=== PATIENT | female | born 1940 | race Two or more races ===

== ENCOUNTER 2020-03-19 09:43 | Inpatient (IN) | payer MEDICARE, OTHER ==
[~2020-03-19] VITALS: Ht 154.9 cm; Wt 77.8 kg
[2020-03-19] MEDS ORDERED: DexAMETHasone SOD PHOS 10MG/1ML VIAL INJ IV ONE (10:15)
[2020-03-19] MEDS ORDERED: cefTRIAXone 1GM/50ML D5W 50 ML IV ONE (10:15)
[2020-03-19 10:29] LABS: Eosinophils # (auto) 0.1 10 ^3/uL (0-0.8); Mean Corpuscular Hemoglobin 20.4 pg (28.0-32.0); Mean Corpuscular Hgb Conc. 27.5 g/dL (32.0-36.0)
[2020-03-19 10:32] LABS: Basophils # (auto) 0 10 ^3/uL (0-0.2); Basophils % (auto) 0.3 % (0.0-2.0); Eosinophils % (auto) 0.6 % (0.0-7.0); Hematocrit 31.4 % (36.0-46.0); Hemoglobin 8.7 g/dL (12.2-16.2); Lymphocytes # (auto) 1.5 10 ^3/uL (0.4-5.4); Lymphocytes % (auto) 12.2 % (10.0-50.0); Monocytes # (auto) 1.5 10 ^3/uL (0-1.3); Monocytes % (auto) 11.9 % (0.0-12.0); Neutrophils # (auto) 9.1 10 ^3/uL (1.6-8.6); Platelet Count (auto) 309 10^3/uL (140-450); Red Blood Cells 4.25 10^6/uL (4.0-5.20); White Blood Cell 12.2 10^3/uL (4.4-10.8)
[2020-03-19 10:41] LABS: INR 1.29 (0.9-1.15); Partial Thromboplastin Time 26.7 sec (23.64-32.05)
[2020-03-19 10:43] LABS: Albumin 3.6 g/dL (3.4-5.0); Anion Gap 5 (5-15); Blood Urea Nitrogen 41 mg/dL (7-18); Calcium 9.6 mg/dL (8.5-10.1); Carbon Dioxide 33 mmol/L (21-32); Chloride 101 mmol/L (98-107); Glucose 100 mg/dL (74-106); Nucleated Red Blood Cells % 7.4 %; Potassium 4.4 mmol/L (3.5-5.1); Red Cell Distribution Width 21.1 % (11.8-14.3); Sodium 139 mmol/L (136-145)
[2020-03-19 10:52] LABS: Alanine Aminotransferase 421 U/L (13-56); Alkaline Phosphatase 167 U/L (45-117); Aspartate Aminotransferase 52 U/L (15-37); BUN/Creatinine Ratio 38.3; Bilirubin, Total 2.3 mg/dL (0.2-1.0); CRP High Sensitivity 2.95 mg/dL (< 0.3); GFR African American 64 mL/min; GFR Non-African American 53 mL/min; Lactate Dehydrogenase 250 U/L (84-246); Total Protein 7.2 g/dL (6.4-8.2)
[2020-03-19 11:15] LABS: Urine Bacteria NONE SEEN /hpf (None Seen); Urine Blood Negative /uL (Negative); Urine Hyaline Cast FEW /lpf (0 - 2); Urine Specific Gravity 1.014 (1.001-1.035); Urine WBC <1 /hpf (0 - 5)
[2020-03-19] MEDS ORDERED: SODIUM CHLORIDE 0.9% 500 ML IV ONE (11:15)
[2020-03-19] MEDS ORDERED: FUROSEMIDE 20 MG/2 ML VIAL IV ONE (12:45)
[2020-03-19] MEDS ORDERED: MORPHINE SULF INJ 2 MG/ML SYRINGE 1ML IV PRN ×2 (14:45→16:15)
[2020-03-19] MEDS ORDERED: NITROGLYCERIN 0.4 MG SL TAB SL PRN (14:45)
[2020-03-19] MEDS ORDERED: PANTOPRAZOLE 40 MG TAB PO ONE (16:15)
[2020-03-19] MEDS ORDERED: ALBUTEROL SULF 2.5 MG/0.5ML(0.5%) NEB SOLN NEB PRN (16:15)
[2020-03-19] MEDS ORDERED: ONDANSETRON HCL 4 MG/2 ML VIAL IV PRN (16:15)
[2020-03-19] MEDS ORDERED: ACETAMINOPHEN 500 MG TAB PO PRN (16:15)
[2020-03-19] MEDS: FUROSEMIDE 40 MG/4 ML VIAL IV SCH (18:30)
[2020-03-19] MEDS ORDERED: ASPI-691 PO (18:59)
[2020-03-19 19:29] LABS: Hematocrit 29.8 % (36.0-46.0)
[2020-03-19 19:31] LABS: Hemoglobin 8.3 g/dL (12.2-16.2)
[2020-03-19 19:35] LABS: Amylase 16 U/L (25-115); Lipase 82 U/L (73-393)
[2020-03-19] MEDS: ALBUTEROL SULF 2.5 MG/0.5ML(0.5%) NEB SOLN NEB SCH (19:51)
[2020-03-19] MEDS: IPRATROPIUM BROM 0.5 MG/2.5ML INH SOL NEB SCH (19:52)
--- NOTE | 2020-03-19 23:16 | NUR ---
Telemetry admit from CHANDRA MONTALVO admitted to Telemetry unit; no SBAR received. Patient oriented by SANAZ MIRANDA, primary RN, to unit, room, bed, and unit policies regarding patient care and visiting hours. Patient now on continuous telemetry monitoring, tele box #27 and telemetry reading on arrival to unit is 91. Patient placed on bedside oxygen at 4lpm with O2 sat of 91, weighed by bedscale and encouraged to call if she needs something. Bed low with HOB in semi-Ortega's position. Post breath sounds diminished throughout. Ant breath sounds clear with occ scattered crackles. All questions and concerns addressed, patient verbalized understanding. Nurse call light attached to HOB rail for easy access by pt.
[2020-03-20 01:08] LABS: Hematocrit 30.4 % (36.0-46.0); Hemoglobin 8.4 g/dL (12.2-16.2)
[2020-03-20] MEDS: ALBUTEROL SULF 2.5 MG/0.5ML(0.5%) NEB SOLN NEB SCH ×4 (01:14→19:29)
[2020-03-20] MEDS: IPRATROPIUM BROM 0.5 MG/2.5ML INH SOL NEB SCH ×4 (01:14→19:29)
[2020-03-20] MEDS: ATORVASTATIN 20 MG TAB PO SCH ×2 (01:31→22:37)
[2020-03-20] MEDS: CARVEDILOL 3.125 MG TAB PO SCH ×3 (01:31→22:38)
[2020-03-20] MEDS: PANTOPRAZOLE 40 MG TAB PO SCH ×3 (01:31→22:37)
[2020-03-20 05:00] VITALS: BP 82/32
[2020-03-20] MEDS: FUROSEMIDE 40 MG/4 ML VIAL IV SCH ×2 (06:00→17:46)
[2020-03-20] MEDS: CLINDAMYCIN 600MG IV 50 ML IV SCH ×4 (06:00→22:00)
[2020-03-20] MEDS: SODIUM CHLOR 0.9% PF (SALINE LOCK) 10ML VIAL/SYR IV SCH ×4 (06:00→22:00)
--- NOTE | 2020-03-20 07:30 | NUR ---
RECEIVED REPORT AND CONTINUATION OF CARE,PATIENT ASLEEP,AROUSABLE TO VERBAL STIMULI, ALERT,ORIENTED,COOPERATIVE,INSTRUCTED ON PLAN OF CARE AND EXPLAIN DISEASE PROCESS,CALL LIGHT WITHIN REACH,PATIENT REMINDED INSTRUCTED TO CALL FOR ASSISTANCE.PATIENT VERBALIZED UNDERSTANDING
[2020-03-20 07:46] LABS: Hemoglobin 7.9 g/dL (12.2-16.2); White Blood Cell 11.4 10^3/uL (4.4-10.8)
[2020-03-20 07:48] LABS: Hematocrit 28.2 % (36.0-46.0); Mean Corpuscular Hemoglobin 20.6 pg (28.0-32.0); Mean Corpuscular Volume 73.6 fL (80.0-100.0); Platelet Count (auto) 236 10^3/uL (140-450); Red Blood Cells 3.83 10^6/uL (4.0-5.20)
[2020-03-20 07:54] LABS: Albumin 2.7 g/dL (3.4-5.0); BUN/Creatinine Ratio 36.9; Calcium 8.6 mg/dL (8.5-10.1); Potassium 4.1 mmol/L (3.5-5.1); Red Cell Distribution Width 20.9 % (11.8-14.3)
[2020-03-20 07:55] LABS: Band Neutrophils % (manual) 0; Basophils % (manual) 0 (0.0-2.0); Blast Cells 0; Eosinophils % (manual) 0 (0-7); Metamyelocytes % 0; Myelocytes % 0; Promyelocytes % 0
[2020-03-20 07:56] LABS: Bilirubin, Total 1.2 mg/dL (0.2-1.0); Total Protein 5.8 g/dL (6.4-8.2)
[2020-03-20 08:00] VITALS: BP 82/30
[2020-03-20] MEDS ORDERED: ENALAPRIL MALEATE 2.5 MG TAB PO SCH (10:00)
[2020-03-20] MEDS ORDERED: ASPirin 81 mg TAB PO SCH (10:00)
[2020-03-20] MEDS ORDERED: NITROGLYCERIN 0.2MG/HR TOPICAL PATCH TD SCH (10:00)
[2020-03-20 10:12] LABS: Lymphocytes % (manual) 10 (10.0-50.0); Monocytes % (manual) 10 (0-12); Reactive Lymphocytes 1
--- NOTE | 2020-03-20 10:30 | NUR ---
DAUGHTER DAVID CALLED (AFTER PASSWORD PROVIDED) UPDATED WITH PATIENT STATUS AND PLAN OF CARE
[2020-03-20] MEDS: levoFLOXacin 500MG 100 ML IV SCH (10:42)
[2020-03-20] MEDS: POTASSIUM CHL 20 Meq TABLET PO SCH (10:46)
[2020-03-20] MEDS: ASPirin 81 mg TAB PO SCH (10:47)
[2020-03-20] MEDS: ENOXAPARIN SOD 40 MG/0.4 ML SYRINGE SC SCH (10:49)
[2020-03-20] MEDS: NITROGLYCERIN 0.2MG/HR TOPICAL PATCH TD SCH (10:49)
--- NOTE | 2020-03-20 10:50 | NUR ---
COREG 3.125,NTG 0.2MG AND VASOTEC HELD DUE TO BP 93/50
--- NOTE | 2020-03-20 11:05 | NUR ---
MD VISIT DR. Lucy JIANG HERE TO SEE AND EXAMINED PATIENT MADE AWARE OF HGB.OF 7.9,RECEIVED ORDER FOR CMP,CBC AND STOOL FOR OB
--- NOTE | 2020-03-20 11:51 | NUR ---
Nutrition Assessment Notes Please refer to link for full assessment notes. Est Energy needs: 0944-4579 kcals (23-25 kcal/kgBW) Est Protein needs: 46-57 gms/day (1.0-1.1 gm/kgBW) Will continue to monitor and reassess prn. Addendum: 03/20/20 at [address] Amended: Links added.
[2020-03-20 12:00] VITALS: BP 113/43
[2020-03-20 14:43] VITALS: BP 113/43
[2020-03-20 17:00] VITALS: BP 95/48
[2020-03-20] MEDS: traMADol HCL 50 MG TAB PO PRN (17:51)
--- NOTE | 2020-03-20 17:51 | NUR ---
C/o back pain scale of 6/10,medicated with Ultram 50 mg po,see eMAR
--- NOTE | 2020-03-20 19:17 | NUR ---
STATUS UNCHANGED, NO DISTRESS,NO DISCOMFORT.REPORT GIVEN TO SANAZ FERRARO RN
--- NOTE | 2020-03-20 19:30 | NUR ---
Opening Shift Note Assumed care of patient, awake and alert and complaintive. Asking for room temp to be turned down; has 4 blankets on her bed. This RN spoke with pt's room mate who is not hot, therefore room temp not changed. 3 blankets removed and one folded at foot of bed. Extra blankets placed in pt's closet. Pt agreeable with action taken. Pt not wearing gown; covered with sheet. OBT cleared of everything but cup, pitcher of water and one pudding from p.m. tray and spoon. No S/S of distress/SOB and pt denies pain. Instructed on POC and to call for assist PRN. This RN will continue to monitor for changes Q1hr and PRN. Bed low; HOB in High Ortega's position. Call light at pt's side.
[2020-03-20 21:57] VITALS: BP 106/55
--- NOTE | 2020-03-20 22:37 | NUR ---
Pt in deep sleep when awakened for med pass. Pt took meds in cup and began to pour them into her own mouth then yelled and jumped having one tablet in mouth. Pt unable to state what happened but denies pain. When RN started asking questions to determine orientation, pt cut her eyes at this nurse and smiled verbally avoiding answering the questions. Pt stated this happens freq when awakens in night.
[2020-03-21] MEDS: TEMAZEPAM 15 MG CAP PO PRN (00:19)
--- NOTE | 2020-03-21 00:19 | NUR ---
Restoril i po given to pt as she awakened yelling, "I need a nurse! I need a nurse!" This RN responded to pt's room finding her in bed with anxious expression. Pt stated she needed air. Pt wearing n/c for O2 at 4 lpm. This RN explained this to pt who then stated, "Everyone's been telling me that, but what does it mean?" Explained that oxygen is the main thing in the air that we need to breathe and her nasal tube is giving this to her. Pt having difficulty putting her words together and her hands were shaking. This RN asked if she had med to help her relax would she take it. Pt responded positively and said she needs sleep. Restoril given as no anti-anxiety med ordered. Pt asked that her HOB be lowered. HOB lowered per desire to semi-Ortega's position as pt requesting.
--- NOTE | 2020-03-21 01:29 | NUR ---
Respiratory note: PT IS REFUSING SCHED MED NEB TX AT THIS TIME. PT SHOWS NO S/S OF SOB OR RESPIRATORY DISTRESS. WILL CONTINUE TO MONITOR.
[2020-03-21 04:58] VITALS: BP 104/43
[2020-03-21] MEDS: CLINDAMYCIN 600MG IV 50 ML IV SCH (06:00)
[2020-03-21] MEDS: SODIUM CHLOR 0.9% PF (SALINE LOCK) 10ML VIAL/SYR IV SCH ×3 (06:00→22:33)
[2020-03-21] MEDS: FUROSEMIDE 40 MG/4 ML VIAL IV SCH (06:00)
[2020-03-21] MEDS: ALBUTEROL SULF 2.5 MG/0.5ML(0.5%) NEB SOLN NEB SCH ×3 (07:32→19:14)
[2020-03-21] MEDS: IPRATROPIUM BROM 0.5 MG/2.5ML INH SOL NEB SCH ×3 (07:32→19:14)
[2020-03-21 07:36] LABS: Hemoglobin 8.5 g/dL (12.2-16.2)
[2020-03-21 07:39] LABS: Hematocrit 30.3 % (36.0-46.0); Mean Corpuscular Hemoglobin 20.9 pg (28.0-32.0); Mean Corpuscular Hgb Conc. 28.2 g/dL (32.0-36.0); Mean Corpuscular Volume 74.3 fL (80.0-100.0); Platelet Count (auto) 265 10^3/uL (140-450); Red Blood Cells 4.08 10^6/uL (4.0-5.20); White Blood Cell 13.4 10^3/uL (4.4-10.8)
[2020-03-21 07:56] LABS: BUN/Creatinine Ratio 34.2; Potassium 4.8 mmol/L (3.5-5.1)
[2020-03-21 07:59] LABS: Bilirubin, Total 1.2 mg/dL (0.2-1.0); Total Protein 6.3 g/dL (6.4-8.2)
[2020-03-21 08:00] VITALS: BP_SYST 104; BP_DIAS 43; BP_DIAS 73
[2020-03-21 09:05] LABS: Band Neutrophils % (manual) 0; Basophils % (manual) 0 (0.0-2.0); Blast Cells 0; Metamyelocytes % 0; Myelocytes % 0; Promyelocytes % 0; Reactive Lymphocytes 0
[2020-03-21 09:06] LABS: Eosinophils % (manual) 2 (0-7); Lymphocytes % (manual) 14 (10.0-50.0); Monocytes % (manual) 15 (0-12)
[2020-03-21 09:07] LABS: Hepatitis B Surface Antibody Negative
[2020-03-21 09:46] LABS: Hepatitis A Total Antibody Negative
[2020-03-21] MEDS: CARVEDILOL 3.125 MG TAB PO SCH ×2 (10:00→22:34)
[2020-03-21] MEDS: NITROGLYCERIN 0.2MG/HR TOPICAL PATCH TD SCH (10:00)
[2020-03-21] MEDS: levoFLOXacin 500MG 100 ML IV SCH (10:03)
[2020-03-21] MEDS: POTASSIUM CHL 20 Meq TABLET PO SCH (10:03)
--- NOTE | 2020-03-21 10:10 | NUR ---
Hold PT at this time. Mobilization is contraindicated at this time due to pt's BP 90/44. Will recheck and attempt again later. RN aware.
[2020-03-21 10:11] LABS: Hepatitis B Surface Antigen Negative (Negative)
[2020-03-21] MEDS: ASPirin 81 mg TAB PO SCH (10:11)
[2020-03-21] MEDS: ENOXAPARIN SOD 40 MG/0.4 ML SYRINGE SC SCH (10:11)
[2020-03-21] MEDS: PANTOPRAZOLE 40 MG TAB PO SCH ×2 (10:11→22:35)
[2020-03-21 10:47] LABS: Hepatitis C Antibody Negative (Negative)
[2020-03-21 10:56] LABS: Hepatitis B Core Total AB Negative
[2020-03-21 12:00] VITALS: BP 95/45
--- NOTE | 2020-03-21 15:00 | NUR ---
2nd attempt made for PT eval, pt is currently having echo done. Will attempt again later.
[2020-03-21 17:00] VITALS: BP 111/43
--- NOTE | 2020-03-21 19:15 | NUR ---
Received report from Day Shift YAKELIN Bourgeois. Initial assessment done. Pt. resting in bed, calm and sleeping.
[2020-03-21 20:00] VITALS: BP 108/42
--- NOTE | 2020-03-21 20:00 | NUR ---
Complete assessment done. Pt. on high back and head of bed up @ 85-90 degrees angle. Pt. with mild sob with 02 sat. of 93 % @ 3L/NC continuous. Pt. turned/repositioned, provided bedside nsg. care. Pt. denies any pain, denies chest pain, SR @ the Tele # 27 @ the 80's to 90's @ the monitor. Pt. with F/C which was started last 03/19/20 for Immobility. Generally skin intact. Pt. with RAC PIV access -Saline lock use for antibiotics only, keep patent and intact. No s/s of IV infiltration. Pt.'s consults DR. Chavarria and Dr. Villalta.
[2020-03-21 22:00] VITALS: BP 108/42
[2020-03-21] MEDS: ATORVASTATIN 20 MG TAB PO SCH (22:34)
--- NOTE | 2020-03-21 22:34 | NUR ---
Due meds. given to the pt. Pt. given explanation to the use/benefits of meds. as scheduled. Pt. able to swallow meds. without difficulty with HOB Up @ 45-55 degrees angle. Pt. keep clean, dry, safe and sanding line operator bed, with call-light within reach, bed locked in low position and siderails up x 3 for pt. safety. Pt. on 3 L/NC continuous. No s/s of RR distress.
--- NOTE | 2020-03-22 00:30 | NUR ---
Pt. with RT care @ the bedside. Keep pt. safe and advertising clerk bed. HOB UP @ always.
--- NOTE | 2020-03-22 02:00 | NUR ---
Pt. calm and sleeping, turned/repositioned with the help of nsg. staff (LEANDRA).Pt. continuous on 3 L/NC. Encouraged the pt. not to pull out the Nasal cannula from her nose and keep it there. Checked pt. 02 @ 3L/NC intact to her nasal area. Keep pt. safe and insole coverer bed.
[2020-03-22 05:00] VITALS: BP 106/51
--- NOTE | 2020-03-22 05:30 | NUR ---
Pt. desatting, called RT by the covering RN Sheila, RT started pt. on Oximizer @ 3-5 L per RT Protocol. keep pt. HOB UP and encouraged pt. not to pull out 02 from her nose.
--- NOTE | 2020-03-22 06:00 | NUR ---
Pt. receiving RT treatment/RT care as scheduled. Keep pt. comfortable with the HOB UP @ all times. 02 continuous
[2020-03-22] MEDS: SODIUM CHLOR 0.9% PF (SALINE LOCK) 10ML VIAL/SYR IV SCH ×3 (06:17→22:14)
[2020-03-22] MEDS: ALBUTEROL SULF 2.5 MG/0.5ML(0.5%) NEB SOLN NEB SCH ×7 (06:28→22:00)
[2020-03-22] MEDS: IPRATROPIUM BROM 0.5 MG/2.5ML INH SOL NEB SCH ×5 (06:28→22:00)
--- NOTE | 2020-03-22 06:28 | NUR ---
Respiratory note PAGED FOR 220A FOR PT DESATING. FOUND PT ON ROOM AIR, SP02 76%. RR 24 AND PURSE LIP BREATHING. PLACED PT BACK ON 02 NC 5 LPM SP02 AFTER CHANGE 95%. GAVE PT SCHEDULED BREATHING TX.
[2020-03-22 08:00] VITALS: BP 106/53
--- NOTE | 2020-03-22 08:00 | NUR ---
Received pt resting in bed, pt on O2 5 lit N/C, pt O2 sat 93%. pt denies any pain or discomfort at this time, zheng draining to gravity, SCDs on to BLE, call light within reach, will continue to monitor pt.
[2020-03-22] MEDS: NITROGLYCERIN 0.2MG/HR TOPICAL PATCH TD SCH (10:00)
[2020-03-22] MEDS ORDERED: FUROSEMIDE 40 MG/4 ML VIAL IV SCH (10:00)
[2020-03-22] MEDS: ASPirin 81 mg TAB PO SCH (10:21)
[2020-03-22] MEDS: levoFLOXacin 500MG 100 ML IV SCH (10:21)
[2020-03-22] MEDS: CARVEDILOL 3.125 MG TAB PO SCH ×2 (10:22→22:14)
[2020-03-22] MEDS: ENOXAPARIN SOD 40 MG/0.4 ML SYRINGE SC SCH (10:22)
[2020-03-22] MEDS: PANTOPRAZOLE 40 MG TAB PO SCH ×2 (10:22→22:14)
[2020-03-22] MEDS: POTASSIUM CHL 20 Meq TABLET PO SCH (10:22)
--- NOTE | 2020-03-22 11:09 | NUR ---
Dr. Linares at unit to see pt, doctor informed regarding holding the Nitro patch due to low BP, doctor also informed that Coreg has been held in the past due to low BP, doctor stated to give Coreg and to only hold it if SBP <90 or HR <60, doctor informed that pt is now on 5 lit of O2 via N/C,
[2020-03-22 11:19] LABS: Albumin 2.9 g/dL (3.4-5.0); Potassium 5.2 mmol/L (3.5-5.1)
[2020-03-22 11:22] LABS: BUN/Creatinine Ratio 37.9
[2020-03-22 11:42] LABS: Basophils # (auto) 0 10 ^3/uL (0-0.2); Basophils % (auto) 0.1 % (0.0-2.0); Eosinophils # (auto) 0.1 10 ^3/uL (0-0.8); Eosinophils % (auto) 0.8 % (0.0-7.0); Hematocrit 32.3 % (36.0-46.0); Hemoglobin 8.8 g/dL (12.2-16.2); Lymphocytes # (auto) 0.8 10 ^3/uL (0.4-5.4); Lymphocytes % (auto) 6.9 % (10.0-50.0); Mean Corpuscular Hemoglobin 20.1 pg (28.0-32.0); Mean Corpuscular Hgb Conc. 27.4 g/dL (32.0-36.0); Mean Corpuscular Volume 73.6 fL (80.0-100.0); Monocytes # (auto) 1.2 10 ^3/uL (0-1.3); Monocytes % (auto) 10.1 % (0.0-12.0); Neutrophils # (auto) 9.5 10 ^3/uL (1.6-8.6); Neutrophils % (auto) 82.1 % (37.0-80.0); Nucleated Red Blood Cells % 2.5 %; Platelet Count (auto) 202 10^3/uL (140-450); Red Blood Cells 4.39 10^6/uL (4.0-5.20); White Blood Cell 11.5 10^3/uL (4.4-10.8)
[2020-03-22 11:49] LABS: Red Cell Distribution Width 21.4 % (11.8-14.3)
[2020-03-22 12:00] VITALS: BP 115/41
--- NOTE | 2020-03-22 12:00 | NUR ---
Respiratory note: PT REFUSING MED NEB TX. PT EDUCATED ON MEDICATION. PT STILL REFUSING.
--- NOTE | 2020-03-22 13:27 | NUR ---
Dr. Chavarria / GI at bed side to see pt, doctor ordered Dulcolax suppository x1 and Fleet enema x1.
[2020-03-22] MEDS ORDERED: BISACODYL 10 MG RECT SUPP PR ONE (13:30)
[2020-03-22] MEDS ORDERED: FLEET ENEMA(ADULT) 135 ML PR ONE (13:30)
--- NOTE | 2020-03-22 14:20 | NUR ---
Respiratory note: PT MED NEBS CHANGED TO Q4. PT JUST GETTING BACK FROM RADIOLOGY. PT STILL REFUSING.
--- NOTE | 2020-03-22 14:27 | NUR ---
Called Dr. Chavarria / GI to inform her that Dr. Linares place another GI consult for pt to be evaluated for transaminitis. Left a message with doctor's nurse.
[2020-03-22] MEDS: methylPREDNISolone ACETATE 80 MG/ML VL IM SCH ×2 (14:35→22:14)
--- NOTE | 2020-03-22 14:58 | NUR ---
Pt requested the Dulcolax suppository and wants to wait for the fleet enema for now.
--- NOTE | 2020-03-22 15:44 | NUR ---
Dr. Linares called and left a message with the pt's VQ scan results.
--- NOTE | 2020-03-22 16:35 | NUR ---
Called nuclear medicine to inquired why was the ventilation study from the VQ scan was not done as per Dr. Linares's request, no answer, left a message to call me back. Doctor informed that they were gone for the day and that they are closed for the weekend.
[2020-03-22 17:00] VITALS: BP 112/57
--- NOTE | 2020-03-22 18:40 | NUR ---
RT NOTE PT WAS SEEN BY RT FOR HHN TX. PT TOLERATES POORLY. TX STOPPED EARLY DUE TO PT REQUEST. PT WAS TRIED ON OXYMIZER, BUT STATES ITS TOO UNCOMFORTABLE SO PT WAS PLACED BACK ON 6L NASAL CANNULA. YAKELIN MCCLELLAN. CONT ORDERED Addendum: 03/22/20 at 1929 by Mari Pimentel RT Amended: Links added.
--- NOTE | 2020-03-22 19:20 | NUR ---
Opening Shift Note Received report from Kamilla HAMLIN. Assumed care of patient, awake and alert. No S/S of distress/SOB or pain. Instructed on POC and to call for assist PRN. Fall precaution measures in place, will continue to monitor for changes Q1hr and PRN.
[2020-03-22 20:00] VITALS: BP 116/58
[2020-03-22 22:00] VITALS: BP 116/58
[2020-03-22] MEDS: DOCUSATE SOD 100 MG CAP PO SCH ×2 (22:00→22:14)
--- NOTE | 2020-03-22 22:08 | NUR ---
RT NOTE PT WAS SEEN BY RT FOR HHN TX. PT STATES SHE IS BREATHING FINE AND DOES NOT WANT A TX. YAKELIN COELLO AT BEDSIDE AND AWARE OF PT REFUSAL. HR 87, RR 21, BS CLEAR/DIM, POX 99% ON 6L NASAL CANNULA. FIO2 DECREASED TO 5L. YAKELIN COELLO NOTIFIED. NO TREATMENT GIVEN AT THIS TIME. CONT ORDERED Addendum: 03/22/20 at 2301 by Mari Pimentel RT Amended: Links added.
[2020-03-23] MEDS: IPRATROPIUM BROM 0.5 MG/2.5ML INH SOL NEB SCH ×6 (02:00→23:10)
[2020-03-23] MEDS: ALBUTEROL SULF 2.5 MG/0.5ML(0.5%) NEB SOLN NEB SCH ×6 (02:00→23:10)
--- NOTE | 2020-03-23 02:28 | NUR ---
RT NOTE PT WAS SEE NBY RT FOR HHN TX. PT REFUSED TX EARLIER. NO SOB OR DISTRESS NOTED. HR 90, RR 18, BS NOT AUSCULTATED, POX 97% ON 5L NASAL CANNULA. CONT ORDERED Addendum: 03/23/20 at 0229 by Mari Pimentel RT Amended: Links added.
[2020-03-23 05:00] VITALS: BP 119/56
[2020-03-23] MEDS: SODIUM CHLOR 0.9% PF (SALINE LOCK) 10ML VIAL/SYR IV SCH ×3 (06:15→22:40)
[2020-03-23] MEDS: methylPREDNISolone ACETATE 80 MG/ML VL IM SCH ×3 (06:17→22:56)
--- NOTE | 2020-03-23 07:30 | NUR ---
Opening Shift Note Assumed care of patient, awake and alert. No S/S of distress/SOB or pain. Instructed on POC and to call for assist PRN, will continue to monitor for changes Q1hr and PRN.
[2020-03-23 08:19] VITALS: BP 115/65
[2020-03-23 08:44] LABS: Basophils # (auto) 0 10 ^3/uL (0-0.2); Basophils % (auto) 0.2 % (0.0-2.0); Eosinophils # (auto) 0.1 10 ^3/uL (0-0.8); Hematocrit 27.5 % (36.0-46.0); Lymphocytes # (auto) 0.7 10 ^3/uL (0.4-5.4); Monocytes # (auto) 1.1 10 ^3/uL (0-1.3)
[2020-03-23 08:47] LABS: Eosinophils % (auto) 0.7 % (0.0-7.0); Hemoglobin 7.8 g/dL (12.2-16.2); Lymphocytes % (auto) 6.7 % (10.0-50.0); Mean Corpuscular Hemoglobin 20.7 pg (28.0-32.0); Mean Corpuscular Hgb Conc. 28.4 g/dL (32.0-36.0); Mean Corpuscular Volume 72.8 fL (80.0-100.0); Monocytes % (auto) 10.5 % (0.0-12.0); Neutrophils # (auto) 8.4 10 ^3/uL (1.6-8.6); Neutrophils % (auto) 81.9 % (37.0-80.0); Nucleated Red Blood Cells % 1.5 %; Platelet Count (auto) 220 10^3/uL (140-450); Red Blood Cells 3.78 10^6/uL (4.0-5.20); White Blood Cell 10.2 10^3/uL (4.4-10.8)
[2020-03-23 08:49] LABS: Red Cell Distribution Width 20.9 % (11.8-14.3)
[2020-03-23 09:00] LABS: Albumin 2.8 g/dL (3.4-5.0); Magnesium 2.2 mg/dL (1.6-2.6); Potassium 5.1 mmol/L (3.5-5.1)
[2020-03-23 09:03] LABS: BUN/Creatinine Ratio 41.7; Total Protein 5.9 g/dL (6.4-8.2)
[2020-03-23] MEDS: levoFLOXacin 500MG 100 ML IV SCH (09:42)
[2020-03-23] MEDS: ENOXAPARIN SOD 40 MG/0.4 ML SYRINGE SC SCH (09:42)
[2020-03-23] MEDS: CARVEDILOL 3.125 MG TAB PO SCH ×2 (09:43→22:41)
[2020-03-23] MEDS: PANTOPRAZOLE 40 MG TAB PO SCH ×2 (09:43→22:42)
[2020-03-23] MEDS: ASPirin 81 mg TAB PO SCH (09:43)
[2020-03-23] MEDS: DOCUSATE SOD 100 MG CAP PO SCH ×2 (09:43→22:40)
--- NOTE | 2020-03-23 09:55 | NUR ---
Dr. Linares in to see patient as primary MD. He was informed that the patient's daughter, Aury, wants to speak with him: [phone].
[2020-03-23] MEDS: NITROGLYCERIN 0.2MG/HR TOPICAL PATCH TD SCH (10:00)
--- NOTE | 2020-03-23 11:15 | NUR ---
IV insertion IV access obtained, via clean sterile technique by inserting 20 gauge catheter at right hand after 1 attempt. IV secured properly. No trauma to site. Patient tolerated procedure well. IV right AC removed with tip intact. Pressure dressing to site.
[2020-03-23 13:00] VITALS: BP 116/55
[2020-03-23 16:55] VITALS: BP 135/56
--- NOTE | 2020-03-23 18:53 | NUR ---
Respiratory note: PLACED PT ON 10L OXYMIZER POST MED NEB TO ACHIEVE SAT OF 92%.
[2020-03-23 22:00] VITALS: BP 107/51
[2020-03-23] MEDS: TEMAZEPAM 15 MG CAP PO PRN (22:43)
--- NOTE | 2020-03-23 23:15 | NUR ---
Respiratory note: PT DID NOT FINISH MED NEB, SAID SHE CANT DO IT
--- NOTE | 2020-03-23 23:16 | NUR ---
Respiratory note: PT DOES NOT WANT TO BE WOKEN UP FOR NEXT SCHEDULED MED NEB AT 0200
[2020-03-24 06:00] VITALS: BP 128/66
[2020-03-24] MEDS: ALBUTEROL SULF 2.5 MG/0.5ML(0.5%) NEB SOLN NEB SCH ×6 (06:24→22:10)
[2020-03-24] MEDS: IPRATROPIUM BROM 0.5 MG/2.5ML INH SOL NEB SCH ×6 (06:25→22:10)
[2020-03-24] MEDS: SODIUM CHLOR 0.9% PF (SALINE LOCK) 10ML VIAL/SYR IV SCH ×3 (06:31→21:05)
[2020-03-24] MEDS: methylPREDNISolone ACETATE 80 MG/ML VL IM SCH (06:31)
[2020-03-24 07:25] LABS: Basophils # (auto) 0 10 ^3/uL (0-0.2); Eosinophils # (auto) 0 10 ^3/uL (0-0.8); Eosinophils % (auto) 0.3 % (0.0-7.0)
[2020-03-24 07:29] LABS: Basophils % (auto) 0.2 % (0.0-2.0); Hematocrit 27.8 % (36.0-46.0); Hemoglobin 7.9 g/dL (12.2-16.2); Lymphocytes # (auto) 0.9 10 ^3/uL (0.4-5.4); Lymphocytes % (auto) 7.5 % (10.0-50.0); Mean Corpuscular Hemoglobin 20.5 pg (28.0-32.0); Mean Corpuscular Hgb Conc. 28.4 g/dL (32.0-36.0); Mean Corpuscular Volume 72.3 fL (80.0-100.0); Monocytes % (auto) 8.7 % (0.0-12.0); Neutrophils % (auto) 83.3 % (37.0-80.0); Nucleated Red Blood Cells % 0.6 %; Platelet Count (auto) 234 10^3/uL (140-450); Red Blood Cells 3.85 10^6/uL (4.0-5.20)
[2020-03-24 07:41] LABS: Red Cell Distribution Width 21.4 % (11.8-14.3)
[2020-03-24 07:53] LABS: Albumin 2.9 g/dL (3.4-5.0); Calcium 9.4 mg/dL (8.5-10.1); Magnesium 2.2 mg/dL (1.6-2.6); Potassium 5.2 mmol/L (3.5-5.1)
[2020-03-24 07:58] LABS: BUN/Creatinine Ratio 39.3; Bilirubin, Total 0.8 mg/dL (0.2-1.0); Total Protein 6.1 g/dL (6.4-8.2)
[2020-03-24 09:00] VITALS: BP 102/72
[2020-03-24] MEDS: ENOXAPARIN SOD 40 MG/0.4 ML SYRINGE SC SCH (09:54)
[2020-03-24] MEDS: FUROSEMIDE 20 MG TAB PO SCH (09:54)
[2020-03-24] MEDS: ASPirin 81 mg TAB PO SCH (09:54)
[2020-03-24] MEDS: levoFLOXacin 500MG 100 ML IV SCH (09:55)
[2020-03-24] MEDS: CARVEDILOL 3.125 MG TAB PO SCH ×2 (09:55→21:59)
[2020-03-24] MEDS: DOCUSATE SOD 100 MG CAP PO SCH ×2 (09:55→21:04)
[2020-03-24] MEDS: PANTOPRAZOLE 40 MG TAB PO SCH ×2 (09:55→21:03)
[2020-03-24] MEDS: NITROGLYCERIN 0.2MG/HR TOPICAL PATCH TD SCH (09:56)
--- NOTE | 2020-03-24 10:30 | NUR ---
IV insertion IV access obtained, via clean sterile technique by inserting 20 gauge catheter at right forearm after 1 attempt. IV secured properly. No trauma to site. Patient tolerated procedure well. IV right hand puffy, tender. IV removed with tip intact. Pressure dressing to site.
--- NOTE | 2020-03-24 10:37 | NUR ---
Pt was initially agreeable to PT treatment. Attempted to assist pt to sit EOB but she began yelling, "No, no, no put me back." Pt was returned to supine. She then refused to perform therex in supine stating she was too tired and needs to rest. Educated pt on importance of exercise to decrease adverse effects of bedrest. Pt verbalized understanding but continues to refuse. Will attempt again tomorrow.
--- NOTE | 2020-03-24 11:36 | NUR ---
Nutrition Followup Notes Wt: 79.4 kg Pt sleeping with no family by bedside. per records pt with COPD exacerbation. pt is currently on cardiac diet with inadequate PO of 50% x 4 per RN doc Est Energy needs: 0791-2149 kcals (23-25 kcal/kgBW), Est Protein needs: 46-57 gms/day (1.0-1.1 gm/kgBW). Will continue to monitor and reassess prn. LABS: GLU 125 H, BUN 33 H, K 5.2 H, CO2 35 H ALB 2.9 L GI: Pt had 1 BM today per RN doc. BS: 17 mod risk. Refer to wound assessment report for full details. PES: 1) Inadequate oral intake aeb pt refusal to eat r/t pt with negligible PO intake 2) Obesity 159% IBW and BMI of 31.7 kg/m2 r/t energy intake in excess of energy needs 3) Altered nutrition related lab values aeb elev RFTs, low GFR, elev Bili, elev LFTs, mod hypoalbuminemia r/t current/chronic medical condition Comments 1) Continue to closely monitor and assist pt PO intake to meet at least 75% of meals 2) Continue current plan of care. F/u mod 3-5 days
[2020-03-24 12:20] LABS: Calcium 9.6 mg/dL (8.5-10.1); Potassium 5.5 mmol/L (3.5-5.1)
[2020-03-24 13:00] VITALS: BP 117/70
--- NOTE | 2020-03-24 13:03 | NUR ---
Patient coughing up moderate amounts of clear sputum. States she is having trouble breathing. O2 sat 87-88 % on oximizer 3 liters. RT at bedside and attempted to place patient on non-rebreather mask. Patient is not able to tolerate the mask, demanded it be taken off. Patient placed on 15 liters oximizer. O2 sat 92%. Will continue to monitor. Call light in reach.
--- NOTE | 2020-03-24 13:17 | NUR ---
Patient anxious, states she can't breath. O2 found off. Replaced O2, gave patient education re need to keep O2 on. Patient states the room is hot. Got ice pack and placed it behind patient's neck. Cold washcloth placed on patient's head. Patient seems calmer. Pulse ox 91%. Call light in reach. Will continue to monitor.
[2020-03-24] MEDS: traMADol HCL 50 MG TAB PO PRN ×2 (13:46→21:02)
--- NOTE | 2020-03-24 15:00 | NUR ---
Dr. Watts in to see patient as primary MD. CT angio ordered to R/O PE.
--- NOTE | 2020-03-24 15:23 | NUR ---
Patient taken to CT via bed. O2 in place.
[2020-03-24] MEDS ORDERED: IOHEXOL 350 MG/ML 100ML IJ ONE (15:24)
--- NOTE | 2020-03-24 15:46 | NUR ---
Patient returned to room. O2 in place. No S/S distress. Call light in reach. Will continue to monitor.
[2020-03-24 17:00] VITALS: BP 129/56
[2020-03-24] MEDS: TEMAZEPAM 15 MG CAP PO PRN (21:03)
[2020-03-24] MEDS: methylPREDNISolone SOD SUCC 40 MG/ML VL IV SCH (21:04)
[2020-03-24 22:00] VITALS: BP 133/63
--- NOTE | 2020-03-24 22:11 | NUR ---
PT REFUSED MED NEB FOR THE NIGHT. PT DENIES SOB. PT STATED SHE JUST WANTED TO SLEEP. PT IS ON A 10LPM OXYMIZER SATS 99% NO DISTRESS NOTED.
--- NOTE | 2020-03-24 23:49 | NUR ---
Report given to Igor HAMLIN. Patient is currently sleeping with no signs of distress.
--- NOTE | 2020-03-24 23:50 | NUR ---
Received report from Fidencio. Will continue care
[2020-03-25 05:00] VITALS: BP 125/71
[2020-03-25 05:53] LABS: Calcium 9.7 mg/dL (8.5-10.1)
[2020-03-25 05:55] LABS: BUN/Creatinine Ratio 34.1
[2020-03-25] MEDS: SODIUM CHLOR 0.9% PF (SALINE LOCK) 10ML VIAL/SYR IV SCH ×3 (06:00→21:49)
[2020-03-25] MEDS: methylPREDNISolone SOD SUCC 40 MG/ML VL IV SCH ×2 (06:01→13:49)
--- NOTE | 2020-03-25 06:20 | NUR ---
Critical lab result CO2 41. Paged doctor Mac right away.
--- NOTE | 2020-03-25 06:35 | NUR ---
Doctor Ajay called back regarding pt CO2 result. No orders received.
[2020-03-25] MEDS: ALBUTEROL SULF 2.5 MG/0.5ML(0.5%) NEB SOLN NEB SCH ×3 (06:51→18:27)
[2020-03-25] MEDS: IPRATROPIUM BROM 0.5 MG/2.5ML INH SOL NEB SCH ×4 (06:51→18:26)
[2020-03-25 09:00] VITALS: BP 118/49
--- NOTE | 2020-03-25 09:22 | NUR ---
Attempted PT treatment. Pt refused stating she just fell asleep and to please come back later. Will try again.
[2020-03-25] MEDS: ENOXAPARIN SOD 40 MG/0.4 ML SYRINGE SC SCH (09:27)
[2020-03-25] MEDS: PANTOPRAZOLE 40 MG TAB PO SCH ×2 (09:27→21:48)
[2020-03-25] MEDS: levoFLOXacin 500MG 100 ML IV SCH (09:27)
[2020-03-25] MEDS: DOCUSATE SOD 100 MG CAP PO SCH ×2 (09:28→21:48)
[2020-03-25] MEDS: ASPirin 81 mg TAB PO SCH (09:28)
[2020-03-25] MEDS: FUROSEMIDE 20 MG TAB PO SCH (09:28)
[2020-03-25] MEDS: NITROGLYCERIN 0.2MG/HR TOPICAL PATCH TD SCH (09:29)
[2020-03-25] MEDS: CARVEDILOL 3.125 MG TAB PO SCH ×2 (09:29→21:49)
--- NOTE | 2020-03-25 10:30 | NUR ---
I/S Educated and encouraged patient to use I/S
[2020-03-25 13:21] VITALS: BP 107/50
--- NOTE | 2020-03-25 15:05 | NUR ---
Pt refused 2nd attempt at PT eval. Pt was re-educated on importance of mobility to prevent adverse effects of bedrest. Pt states "We'll try tomorrow."
[2020-03-25 16:00] LABS: INR 1.15 (0.9-1.15); Partial Thromboplastin Time 30.5 sec (23.64-32.05)
[2020-03-25 17:46] VITALS: BP 104/50
--- NOTE | 2020-03-25 17:50 | NUR ---
Hospitalist Rounded Dr. Watts rounded on patient.
--- NOTE | 2020-03-25 18:30 | NUR ---
Telephone Call from daughter Received phone call from Aury Hendrickson (daughter). She had questions regarding POA and if she would be able to come to the hospital to sign form for her mother. She will call back 03/26 and speak with director of social services.
[2020-03-25] MEDS: TEMAZEPAM 15 MG CAP PO PRN (21:50)
[2020-03-25 22:00] VITALS: BP 117/48
[2020-03-26] MEDS: IPRATROPIUM BROM 0.5 MG/2.5ML INH SOL NEB SCH ×4 (01:06→19:00)
[2020-03-26] MEDS: ALBUTEROL SULF 2.5 MG/0.5ML(0.5%) NEB SOLN NEB SCH ×4 (01:06→19:00)
[2020-03-26 05:00] VITALS: BP 108/49
[2020-03-26] MEDS: SODIUM CHLOR 0.9% PF (SALINE LOCK) 10ML VIAL/SYR IV SCH ×3 (06:08→19:31)
[2020-03-26 06:49] LABS: Basophils # (auto) 0 10 ^3/uL (0-0.2); Basophils % (auto) 0.1 % (0.0-2.0); Eosinophils # (auto) 0 10 ^3/uL (0-0.8); Mean Corpuscular Volume 71.4 fL (80.0-100.0); Monocytes # (auto) 1.2 10 ^3/uL (0-1.3); Nucleated Red Blood Cells % 0.2 %
[2020-03-26 06:50] LABS: Eosinophils % (auto) 0.3 % (0.0-7.0); Hematocrit 29.5 % (36.0-46.0); Hemoglobin 8.5 g/dL (12.2-16.2); Lymphocytes # (auto) 0.9 10 ^3/uL (0.4-5.4); Lymphocytes % (auto) 9.8 % (10.0-50.0); Mean Corpuscular Hemoglobin 20.6 pg (28.0-32.0); Mean Corpuscular Hgb Conc. 28.9 g/dL (32.0-36.0); Monocytes % (auto) 12.6 % (0.0-12.0); Neutrophils # (auto) 7.4 10 ^3/uL (1.6-8.6); Neutrophils % (auto) 77.2 % (37.0-80.0); Platelet Count (auto) 247 10^3/uL (140-450); Red Blood Cells 4.13 10^6/uL (4.0-5.20); White Blood Cell 9.6 10^3/uL (4.4-10.8)
[2020-03-26 06:52] LABS: Red Cell Distribution Width 21.7 % (11.8-14.3)
[2020-03-26 07:04] LABS: INR 1.18 (0.9-1.15); Partial Thromboplastin Time 28.2 sec (23.64-32.05)
[2020-03-26 07:06] LABS: BUN/Creatinine Ratio 40.5; Calcium 9.6 mg/dL (8.5-10.1)
--- NOTE | 2020-03-26 08:00 | NUR ---
OPENING SHIFT NOTE ASSUMED CARE OF PATIENT AWAKE AND ALERT. NO S/S OF DISTRESS NOTED OR COMPLAINTS OF PAIN. PATIENT UPDATED ON POC FOR THE DAY AND ALL QUESTIONS ANSWERED. BED IS IN LOWEST, LOCKED POSITION WITH SIDE RAILS UP X2 AND CALL LIGHT WITHIN REACH. WILL CONTINUE TO MONITOR Q1H AND PRN.
[2020-03-26 08:56] VITALS: BP 102/39
--- NOTE | 2020-03-26 09:00 | NUR ---
Pt refused PT treatment again. She states "I'm too cold and tired, try again later."
--- NOTE | 2020-03-26 09:34 | NUR ---
THORACENTESIS RECEIVED CALL FROM ULTRASOUND. RADIOLOGIST REVIEWED IMAGINE AND DECIDED THE PLEURAL EFFUSION IS NOT LARGE ENOUGH TO DRAIN. WILL NOTIFY PATIENT AND MD.
[2020-03-26 09:42] VITALS: BP 108/49
[2020-03-26] MEDS: NITROGLYCERIN 0.2MG/HR TOPICAL PATCH TD SCH (10:00)
[2020-03-26] MEDS: CARVEDILOL 3.125 MG TAB PO SCH ×2 (10:00→19:32)
[2020-03-26] MEDS: levoFLOXacin 500MG 100 ML IV SCH (10:09)
[2020-03-26] MEDS: DOCUSATE SOD 100 MG CAP PO SCH ×2 (10:09→19:31)
[2020-03-26] MEDS: FUROSEMIDE 20 MG TAB PO SCH (10:09)
[2020-03-26] MEDS: PANTOPRAZOLE 40 MG TAB PO SCH ×2 (10:10→19:32)
[2020-03-26 13:00] VITALS: BP 129/48
--- NOTE | 2020-03-26 15:27 | NUR ---
RECEIVED CALL FROM MD SPOKE WITH DR ACEVEDO REGARDING STATUS OF PATIENT. NEW ORDERS RECEIVED, READ BACK AND VERIFIED. WILL CARRY OUT AND CONTINUE CARE.
[2020-03-26] MEDS: traMADol HCL 50 MG TAB PO PRN (16:41)
[2020-03-26 16:47] VITALS: BP 152/86
[2020-03-26] MEDS ORDERED: ALPRAZolam 0.25 MG TAB PO SCH (18:00)
[2020-03-26] MEDS: BUDESONIDE (INHALATION) 0.5 MG/2 ML NEB NEB SCH (19:01)
[2020-03-26] MEDS: methylPREDNISolone SOD SUCC 40 MG/ML VL IV SCH (19:31)
[2020-03-26] MEDS: ALPRAZolam 0.25 MG TAB PO PRN (19:32)
--- NOTE | 2020-03-26 21:00 | NUR ---
Respiratory note: 2ND ATTEMPT TO PLACE PT ON BIPAP, PT AGAIN UNABLE TO TOLERATE. STATES SHE CAN'T BREATH WITH THE MASK ON, FEELS LIKE SHE IS SUFFOCATING. RN MONTSERRAT AT BEDSIDE.
--- NOTE | 2020-03-26 21:24 | NUR ---
BIPAP MADE MULTIPLE ATTEMPTS WITH RT TO PLACE PATIENT ON BIPAP PRESCRIBED BY DR ACEVEDO. INFORMED PATIENT THE IMPORTANCE OF BIPAP PATIENT VERBALIZES UNDERSTANDING. RT PLACED PATIENT ON BIPAP AND PATIENT STATES SHE FEELS UNCOMFORTABLE AND UNABLE TO BREATH. PLACED PATIENT BACK ON OXYMIZER 10L PATIENT STATES SHE CANNOT TOLERATED BIPAP. CALMED PATIENT DOWN INFORMED PATIENT TO CONCENTRATE ON HER RESPIRATIONS. PATIENT O2 SAT 92%.
[2020-03-26] MEDS: TEMAZEPAM 15 MG CAP PO PRN (21:27)
[2020-03-26 22:00] VITALS: BP 119/53
[2020-03-27 05:00] VITALS: BP 110/46
--- NOTE | 2020-03-27 05:12 | NUR ---
PATIENT UP IN BED RELAXED AND RESTING. PATIENT CURRENTLY 10L OXYMIZER O2 SATURATION 96% TURNED PATIENT O2 DOWN TO 8L OXYMIZER 93% IN NO APPARENT RESPIRATORY DISTRESS OR SOB. WILL CONTINUE TO MONITOR PATIENT.
[2020-03-27] MEDS: BUDESONIDE (INHALATION) 0.5 MG/2 ML NEB NEB SCH ×2 (05:53→19:18)
[2020-03-27] MEDS: IPRATROPIUM BROM 0.5 MG/2.5ML INH SOL NEB SCH ×4 (05:53→19:17)
[2020-03-27] MEDS: ALBUTEROL SULF 2.5 MG/0.5ML(0.5%) NEB SOLN NEB SCH ×4 (05:53→19:18)
--- NOTE | 2020-03-27 05:53 | NUR ---
Respiratory note: SCHEDULED MED NEB TX POORLY TOLERATED. PT REQUESTS TO STOP AFTER 1 MINUTE OF TX. TITRATED FIO2 TO 7L OXYMIZER.
--- NOTE | 2020-03-27 06:29 | NUR ---
PATIENT RELAXED AND CALM IN BED HIGH FOWLERS POSITION. PATIENT TITRATED DOWN TO 4L OXYMIZER WITHOUT ANY SOB OR RESPIRATORY DISTRESS
[2020-03-27] MEDS: SODIUM CHLOR 0.9% PF (SALINE LOCK) 10ML VIAL/SYR IV SCH ×3 (06:40→20:22)
[2020-03-27 06:41] LABS: Basophils # (auto) 0 10 ^3/uL (0-0.2); Basophils % (auto) 0.1 % (0.0-2.0); Eosinophils # (auto) 0 10 ^3/uL (0-0.8); Hemoglobin 9.2 g/dL (12.2-16.2); Lymphocytes # (auto) 0.7 10 ^3/uL (0.4-5.4); Lymphocytes % (auto) 6.8 % (10.0-50.0); Mean Corpuscular Hemoglobin 20.5 pg (28.0-32.0); Mean Corpuscular Hgb Conc. 28.7 g/dL (32.0-36.0); Mean Corpuscular Volume 71.3 fL (80.0-100.0); Monocytes # (auto) 0.2 10 ^3/uL (0-1.3); Monocytes % (auto) 2.3 % (0.0-12.0); Neutrophils # (auto) 9.6 10 ^3/uL (1.6-8.6); Neutrophils % (auto) 90.8 % (37.0-80.0); Platelet Count (auto) 252 10^3/uL (140-450); Red Blood Cells 4.49 10^6/uL (4.0-5.20); White Blood Cell 10.5 10^3/uL (4.4-10.8)
[2020-03-27 06:45] LABS: Red Cell Distribution Width 21.8 % (11.8-14.3)
[2020-03-27 06:50] LABS: Calcium 9.9 mg/dL (8.5-10.1); Potassium 4.2 mmol/L (3.5-5.1)
[2020-03-27 06:52] LABS: BUN/Creatinine Ratio 37.9
--- NOTE | 2020-03-27 07:30 | NUR ---
Opening Shift Note Assumed care of patient, awake and alert. No S/S of distress/SOB or pain, patient is on 4L oxymizer. Instructed on POC and to call for assist PRN, will continue to monitor for changes Q1hr and PRN. Bed is locked and in lowest position. Call light within reach.
--- NOTE | 2020-03-27 07:45 | NUR ---
CRITICAL LAB PHONE CALL RECEIVED FROM LAB REGARDING PATIENT CRITICAL CO2 OF 51. THE CO2 LEVEL HAS BEEN TRENDING UP FROM CO2 44 ON 03/26. PAGED DR. ACEVEDO. AWAITING CALL BACK.
[2020-03-27 08:00] VITALS: BP 112/52
[2020-03-27 09:00] VITALS: BP 112/52
[2020-03-27] MEDS: DOCUSATE SOD 100 MG CAP PO SCH ×2 (09:36→20:23)
[2020-03-27] MEDS: CARVEDILOL 3.125 MG TAB PO SCH ×2 (09:36→22:00)
[2020-03-27] MEDS: levoFLOXacin 500MG 100 ML IV SCH (09:37)
[2020-03-27] MEDS: PANTOPRAZOLE 40 MG TAB PO SCH ×2 (09:37→20:23)
[2020-03-27] MEDS: FUROSEMIDE 20 MG TAB PO SCH (09:37)
[2020-03-27] MEDS: methylPREDNISolone SOD SUCC 40 MG/ML VL IV SCH ×2 (09:37→20:23)
[2020-03-27] MEDS: ENOXAPARIN SOD 40 MG/0.4 ML SYRINGE SC SCH (09:38)
--- NOTE | 2020-03-27 12:00 | NUR ---
Nutrition Followup Notes Wt: 76.0 kg Pt sleeping with no family by bedside. Per records pt with COPD exacerbation. Pt is currently on cardiac diet with improved and adequate PO of 100% x 5 per RN doc. Will continue to monitor PO status, skin status, pertinent labs and weight trends. Will f/u in 3-5 days. Est Energy needs: 5800-6160 kcals (23-25 kcal/kgBW), Est Protein needs: 46-57 gms/day (1.0-1.1 gm/kgBW). Will continue to monitor and reassess prn. LABS: GLU 161 H, BUN 39 H, CR 1.03 H, CO2 51 H ALB 2.9 L GI: Pt had 2 BM today per RN doc. BS: 17 mod risk. Refer to wound assessment report for full details. PES: 1) Inadequate oral intake aeb pt refusal to eat r/t pt with negligible PO intake 2) Obesity 159% IBW and BMI of 31.7 kg/m2 r/t energy intake in excess of energy needs 3) Altered nutrition related lab values aeb elev RFTs, low GFR, elev Bili, elev LFTs, mod hypoalbuminemia r/t current/chronic medical condition Comments 1) Continue to closely monitor and assist pt PO intake to meet at least 75% of meals 2) Continue current plan of care.
--- NOTE | 2020-03-27 12:09 | NUR ---
D/C planning Regarding social service consult for SNF placement and to arrange for BIPAP at night. Faxed clinical information to [facility]. Per Noem[facility] with [facility] they can accept patient but they will need a second (-) COVID test before patient can be transfer to facility. YAKELIN Berry was informed.
[2020-03-27 13:00] VITALS: BP 103/53
--- NOTE | 2020-03-27 13:15 | NUR ---
ADVANCED DIRECTIVE NOTARY AND FAMILY AT BEDSIDE FOR PATIENT TO SIGN ADVANCED DIRECTIVE. DAUGHTER WILL BRING A COPY OF ADVANCE DIRECTIVE ONCE IT HAS BEEN COMPLETED. WILL AWAIT COPY FROM DAUGHTER.
[2020-03-27 16:56] VITALS: BP 115/66
--- NOTE | 2020-03-27 17:21 | NUR ---
assessment Patient is a 79 year old female who is alert and oriented. Prior to admission patient lived home with her daughter and family and functioned with assistance. Per patient she has no DME at home. Patient informed me she does not see a doctor or PCP. I informed patient she has a ss consult for SNF for rehab. Patient agreed to SNF. I called patients daughter Aury and she agreed to SNF also. Sangeeta ESCUDERO will satisfy md order. I informed patient she has a right to speak to a social services manager regarding all care. I informed patient she has a right to participate in any and all discharge planning. Patient does not have a POA and advanced directive. I have offered patient information on POA and advanced directives. I informed the patient the advantages and benefits of having an Advanced Directive. Patient verbalized understanding and agreed to discharge plan Addendum: 03/27/20 at 1724 by Jazmin DUONG Amended: Links added.
[2020-03-27] MEDS: MECLIZINE HCL 25 MG TAB PO PRN (18:06)
--- NOTE | 2020-03-27 19:14 | NUR ---
RT NOTE PT WAS SEEN BY RT FOR HHN TX. PT TOLERATES POORLY VIA BLOW BY, PT ONLY TOOK HALF OF THE TX. NO ADVERSE REACTION NOTED. FIO2 INCREASED TO 4L NASAL CANNULA WITH BUBBLE HUMIDIFIER Addendum: 03/27/20 at 1929 by Mari Pimentel RT Amended: Links added.
[2020-03-27] MEDS: ALPRAZolam 0.25 MG TAB PO PRN (20:23)
[2020-03-27] MEDS: traMADol HCL 50 MG TAB PO PRN (20:24)
--- NOTE | 2020-03-27 21:50 | NUR ---
RT NOTE PT PLACED ON BIPAP #B7 AT THIS TIME PER ORDER WITH MEDIUM MASK. BIPAP IS PLUGGED TO RED OUTLET. ALARMS ARE ON AND AUDIBLE TO NURSING. PT PLACED ON BEDSIDE POX PER PROTOCOL. PT STATES: SHE CANNOT BREATHE, ITS TOO HOT, SHE IS THIRSTY, IT IS SUFFOCATING HER, IT HURTS HER CHIN, SHE CANNOT WEAR IT, ETC. RN MONTSERRAT AT BEDSIDE WITH RT TRYING TO HELP PT RELAX AND LET THE MACHINE HELP HER BREATHE BETTER. POSITIVE ENCOURAGEMENT AND EDUCATION SHARED WITH PATIENT TO REINFORCE COMPLIANCE. GOOD VT AND LEAK NOTED. SATS INCREASED AND RR DECREASED PT SETTLED. PT STILL WANTS IT OFF BUT HAS RESIGNED TO TRYING IT FOR 1 HOUR. CONT ORDERED. POX 91-95% Addendum: 03/27/20 at 2241 by Mari Pimentel RT Amended: Links added.
[2020-03-27 22:00] VITALS: BP 103/46
[2020-03-27] MEDS: TEMAZEPAM 15 MG CAP PO PRN (22:00)
--- NOTE | 2020-03-27 23:25 | NUR ---
OFF BIPAP PATIENT CALLED FOR HELP ASKING FOR WATER. HYDRATED PATIENT AND THEN SHE REFUSED TO BE PUT BACK ON BIPAP INFORMED HER THE IMPORTANCE OF BIPAP TO HELP IMPROVE HER RESPIRATORY STATUS, PT CONTINUES TO REFUSE TO BE PUT BACK ON AND REMOVES MASK. PLACED PATIENT ON OXYMIZER 8L WITH O2SAT 91%. WILL CONTINUE TO MONITOR PATIENT.
--- NOTE | 2020-03-28 00:31 | NUR ---
RT NOTE PT WAS SEEN BY RT FOR BIPAP CHECK AND N TX/ PT HAD REMOVED BIPAP AND REFUSED IT WITH YAKELIN MARIANO AT AROUND 2320. PT REMAINS ON BEDSIDE POX FOR SATURATION MONITORING WHILE SLEEPING. PT IS ON 8L OXYMIZER WITH SATS AT 90-91%. PT IS SLEEPING. N TX HELD AT THIS TIME TO ALLOW PT TO SLEEP. NO SOB OR DISTRESS NOTED. YAKELIN MARIANO WILL CALL IF TX NEEDED BEFORE NEXT SCHEDULED TIME. Addendum: 03/28/20 at 0040 by Mari Pimentel RT Amended: Links added.
[2020-03-28] MEDS: IPRATROPIUM BROM 0.5 MG/2.5ML INH SOL NEB SCH ×3 (00:32→12:46)
[2020-03-28] MEDS: ALBUTEROL SULF 2.5 MG/0.5ML(0.5%) NEB SOLN NEB SCH ×3 (00:32→12:46)
--- NOTE | 2020-03-28 02:22 | NUR ---
RT NOTE PT IS SLEEPING WELL. FIO2 TITRATED TO 7L OXYMIZER, SATS 96%
[2020-03-28 05:00] VITALS: BP 125/60
[2020-03-28] MEDS: SODIUM CHLOR 0.9% PF (SALINE LOCK) 10ML VIAL/SYR IV SCH ×2 (05:22→14:00)
[2020-03-28] MEDS: BUDESONIDE (INHALATION) 0.5 MG/2 ML NEB NEB SCH (06:57)
--- NOTE | 2020-03-28 07:30 | NUR ---
Opening Shift Note Assumed care of patient, awake and alert. No S/S of distress/SOB or pain. Instructed on POC and to call for assist PRN, will continue to monitor for changes Q1hr and PRN. Bed is locked and in lowest position. Call light within reach.
[2020-03-28 08:00] VITALS: BP 112/53
[2020-03-28 09:12] VITALS: BP 112/53
[2020-03-28] MEDS ORDERED: ASPirin-EC 81 mg tab PO SCH (10:00)
[2020-03-28] MEDS: levoFLOXacin 500MG 100 ML IV SCH (11:41)
[2020-03-28] MEDS: ENOXAPARIN SOD 40 MG/0.4 ML SYRINGE SC SCH (11:41)
[2020-03-28] MEDS: methylPREDNISolone SOD SUCC 40 MG/ML VL IV SCH (11:41)
[2020-03-28] MEDS: PANTOPRAZOLE 40 MG TAB PO SCH (11:42)
[2020-03-28] MEDS: DOCUSATE SOD 100 MG CAP PO SCH (11:42)
[2020-03-28] MEDS: FUROSEMIDE 20 MG TAB PO SCH (11:43)
[2020-03-28] MEDS: CARVEDILOL 3.125 MG TAB PO SCH (11:44)
[2020-03-28 12:49] VITALS: BP 129/45
[2020-03-28] MEDS: MECLIZINE HCL 25 MG TAB PO PRN (13:46)
--- NOTE | 2020-03-28 14:04 | NUR ---
D/C Planning Received a call from GILDARDO Parker with [facility] medical group advising me per accepting provider at [facility], a second COVID test is not needed. Patient will go to room [address] Reyes Li. [facility] has been arranged for 17:00 via gurney and oxygen [facility] . Informed YAKELIN Brery.
--- NOTE | 2020-03-28 14:22 | NUR ---
D/C Planning Per GILDARDO Parker with [facility] they have order the BIPAP for patient and it will be deliver to [facility].
--- NOTE | 2020-03-28 15:08 | NUR ---
D/C Planning Received a follow up called from GILDARDO Parker with [facility] informing me SG deliver BIPAP to bedside. Placed call to bedside nurse Kristi regarding BIPAP. Per YAKELIN Berry BIPAP is at bedside. Nurse is aware BIPAP needs to go with patient to facility.
--- NOTE | 2020-03-28 16:00 | NUR ---
DISCHARGE PHONE CALL MADE TO [facility] SPOKE TO TANYA HAMLIN TO GIVE REPORT REGARDING PATIENT TRANSFER. PATIENT WILL BE UNDER THE CARE OF DR. Thomas VINES, ROOM 2 BED 1. PATIENT WILL BE TRANSFERRED VIA NON-EMERGENCY MEDICAL AMBULANCE IN [facility] WITH OXYGEN. PATIENTS BELONGINGS WHICH INCLUDE BIPAP AND PERSONAL BELONGINGS WILL BE TRANSPORTED WITH PATIENT. SPOKE WITH DAUGHTER DAVID CRESPO REGARDING TRANSFER TO [facility]. DAVID AWARE ALL QUESTIONS AND CONCERNS ADDRESSED. AWAITING TRANSPORT.
[2020-03-28 17:00] VITALS: BP 108/53
[2020-03-28 18:15] VITALS: BP 108/53
--- NOTE | 2020-03-28 18:49 | NUR ---
[facility] DISCHARGE PATIENT WAS DISCHARGE AND TRANSPORTED VIA NON-EMERGENCY [facility] ON PORTABLE 02 AT 3L OXYMIZER. PATIENT WILL BE TRANSFERRED TO [facility]. PATIENT WAS TRANSPORTED WITH PERSONAL BELONGINGS, BIPAP MACHINE AND DISCHARGE PAPERWORK. PATIENT TOLERATED TRANSFER FROM [facility] TO [facility] WITH NO SIGNS OF DISTRESS. IV REMOVED CATHETER INTACT, PRESSURE DRESSING APPLIED, TELE MONITOR REMOVED AND SENT TO SUPERVISOR FILTRATION ROOM.
[2020-03-29] MEDS ORDERED: ASPI-498 PO (14:37)
== END 2020-03-28 18:40 | DRG 291 ==
LOC: ER 09:43 → TELE 09:44 → TELE-CENTR 23:27
PROVIDERS: ADMIT Internal Medicine; ATTEND Internal Medicine
DX: I13.0 Hypertensive heart and chronic kidney disease with heart failure and stage 1 through stage 4 chronic kidney disease, or unspecified chronic kidney disease (principal); J96.01 Acute respiratory failure with hypoxia; I50.33 Acute on chronic diastolic (congestive) heart failure; J44.1 Chronic obstructive pulmonary disease with (acute) exacerbation; N17.9 Acute kidney failure, unspecified; D50.9 Iron deficiency anemia, unspecified; E66.9 Obesity, unspecified; F41.9 Anxiety disorder, unspecified; K59.00 Constipation, unspecified; N18.9 Chronic kidney disease, unspecified; Z80.3 Family history of malignant neoplasm of breast; R74.0 Nonspecific elevation of levels of transaminase and lactic acid dehydrogenase [LDH]; Z20.828 Contact with and (suspected) exposure to other viral communicable diseases; I27.20 Pulmonary hypertension, unspecified; T50.1X5A Adverse effect of loop [high-ceiling] diuretics, initial encounter; Y92.89 Other specified places as the place of occurrence of the external cause; Z68.32 Body mass index [BMI] 32.0-32.9, adult; Z79.899 Other long term (current) drug therapy
CPT/HCPCS: 36415; 36600; 71045; 71275; 74176; 76604; 76705; 78579; 80048; 80053; 81001; 82150; 82270; 82378; 82550; 82728; 82805; 83615; 83690; 83735; 83880; 84484; 85007; 85014; 85018; 85025; 85027; 85045; 85379; 85610; 85730; 86141; 86704; 86706; 86708; 86803; 87040; 87045; 87070; 87340; 87427; 87804; 87880; 93005; 93306; 93970; 94640; 94660; 96365; 96375; 97163; 97530; 99291; G0378; J0696; J1100; J1956; J2405; J3490

== ENCOUNTER 2020-03-29 08:25 | Inpatient (IN) | payer OTHER ==
[~2020-03-29] VITALS: Ht 154.9 cm; Wt 74.0 kg
[~2020-03-29 08:25] MED LIST: ASPI-691 PO
[2020-03-29] MEDS ORDERED: FUROSEMIDE 40 MG/4 ML VIAL IV ONE (08:45)
[2020-03-29 09:03] LABS: Basophils # (auto) 0 10 ^3/uL (0-0.2); Eosinophils # (auto) 0 10 ^3/uL (0-0.8); Eosinophils % (auto) 0.4 % (0.0-7.0); Hemoglobin 9.1 g/dL (12.2-16.2); Lymphocytes # (auto) 1.3 10 ^3/uL (0.4-5.4); Mean Corpuscular Hemoglobin 20.6 pg (28.0-32.0)
[2020-03-29 09:05] LABS: Basophils % (auto) 0.1 % (0.0-2.0); Hematocrit 31.3 % (36.0-46.0); Lymphocytes % (auto) 10.4 % (10.0-50.0); Mean Corpuscular Volume 70.8 fL (80.0-100.0); Monocytes % (auto) 16.3 % (0.0-12.0); Neutrophils % (auto) 72.8 % (37.0-80.0); Platelet Count (auto) 229 10^3/uL (140-450); Red Blood Cells 4.43 10^6/uL (4.0-5.20); White Blood Cell 12.3 10^3/uL (4.4-10.8)
[2020-03-29 09:07] LABS: Red Cell Distribution Width 22.8 % (11.8-14.3)
[2020-03-29 09:19] LABS: Albumin 3.1 g/dL (3.4-5.0); Calcium 9.8 mg/dL (8.5-10.1); INR 1.09 (0.9-1.15); Partial Thromboplastin Time 24.6 sec (23.0-31.2); Potassium 3.3 mmol/L (3.5-5.1)
[2020-03-29 09:25] LABS: BUN/Creatinine Ratio 45.1; Bilirubin, Total 0.7 mg/dL (0.2-1.0); CRP High Sensitivity 0.12 mg/dL (< 0.3); Total Protein 6.1 g/dL (6.4-8.2)
[2020-03-29] MEDS ORDERED: ALBUTEROL SULF 2.5 MG/0.5ML(0.5%) NEB SOLN NEB PRN (13:00)
[2020-03-29] MEDS ORDERED: IPRATROPIUM BROM 0.5 MG/2.5ML INH SOL NEB PRN (13:00)
[2020-03-29] MEDS ORDERED: MORPHINE SULF INJ 2 MG/ML SYRINGE 1ML IV PRN (13:00)
[2020-03-29] MEDS ORDERED: POTASSIUM CHL 20MEQ/100ML 100 ML IV ONE (13:00)
[2020-03-29] MEDS ORDERED: NITROGLYCERIN 0.4 MG SL TAB SL PRN (13:00)
[2020-03-29] MEDS ORDERED: ASPirin 81 mg TAB PO ONE (13:30)
[2020-03-29] MEDS ORDERED: ENOXAPARIN SOD 40 MG/0.4 ML SYRINGE SC ONE (13:30)
[2020-03-29] MEDS ORDERED: FUROSEMIDE 40 MG TAB PO ONE (13:30)
[2020-03-29] MEDS ORDERED: PANTOPRAZOLE 40 MG TAB PO ONE (13:30)
[2020-03-29] MEDS ORDERED: ASPI-498 PO (14:37)
--- NOTE | 2020-03-29 15:25 | NUR ---
PT. HAD TO BE ENCOURAGED TO KEEP AEROSOL MASK ON FOR MED NEB TX., PT. GETS VERY ANXIOUS WITH MASK ON HER FACE. RETURNED TO 8LPM OXYMIZER AFTER TX. Addendum: 03/29/20 at 1558 by Amy Easley RT Amended: Links added.
[2020-03-29 15:59] VITALS: BP 120/42
[2020-03-29] MEDS: methylPREDNISolone SOD SUCC 40 MG/ML VL IV SCH ×2 (18:37→22:00)
[2020-03-29] MEDS: DOXYCYCLINE 100MG/250ML 250 ML IV SCH (22:00)
[2020-03-29] MEDS: ALPRAZolam 0.5 MG TAB PO SCH (22:00)
[2020-03-30 06:35] LABS: Basophils # (auto) 0 10 ^3/uL (0-0.2); Eosinophils # (auto) 0 10 ^3/uL (0-0.8)
[2020-03-30 06:37] LABS: Hematocrit 28.8 % (36.0-46.0); Hemoglobin 8.5 g/dL (12.2-16.2); Lymphocytes # (auto) 0.9 10 ^3/uL (0.4-5.4); Lymphocytes % (auto) 7.7 % (10.0-50.0); Mean Corpuscular Hemoglobin 20.8 pg (28.0-32.0); Mean Corpuscular Hgb Conc. 29.6 g/dL (32.0-36.0); Mean Corpuscular Volume 70.4 fL (80.0-100.0); Monocytes # (auto) 0.3 10 ^3/uL (0-1.3); Monocytes % (auto) 2.8 % (0.0-12.0); Neutrophils # (auto) 10.5 10 ^3/uL (1.6-8.6); Neutrophils % (auto) 89.5 % (37.0-80.0); Platelet Count (auto) 196 10^3/uL (140-450); Red Blood Cells 4.09 10^6/uL (4.0-5.20); White Blood Cell 11.7 10^3/uL (4.4-10.8)
[2020-03-30 06:40] LABS: Red Cell Distribution Width 22.5 % (11.8-14.3)
[2020-03-30 06:52] LABS: Potassium 3.4 mmol/L (3.5-5.1)
[2020-03-30 07:01] LABS: Albumin 2.9 g/dL (3.4-5.0); BUN/Creatinine Ratio 38.9; Bilirubin, Total 0.5 mg/dL (0.2-1.0); Calcium 9.1 mg/dL (8.5-10.1); Total Protein 5.8 g/dL (6.4-8.2)
[2020-03-30] MEDS: POTASSIUM CHL 20 Meq TABLET PO SCH (10:48)
[2020-03-30] MEDS: ASPirin 81 mg TAB PO SCH (10:48)
[2020-03-30] MEDS: PANTOPRAZOLE 40 MG TAB PO SCH (10:48)
[2020-03-30] MEDS: ENOXAPARIN SOD 40 MG/0.4 ML SYRINGE SC SCH (10:49)
[2020-03-30] MEDS: ALPRAZolam 0.5 MG TAB PO SCH ×2 (10:56→21:19)
[2020-03-30] MEDS: FUROSEMIDE 40 MG TAB PO SCH (10:56)
[2020-03-30] MEDS ORDERED: CALCIUM CARB 500 MG CHEW TAB PO PRN (11:15)
[2020-03-30] MEDS: DOXYCYCLINE 100MG/250ML 250 ML IV SCH ×2 (11:41→21:19)
--- NOTE | 2020-03-30 12:28 | NUR ---
REPORT REPORT RECEIVED FROM ER NURSE.
--- NOTE | 2020-03-30 12:55 | NUR ---
ADMIT REC'D FROM ER TO RM 265. ALERT, NO C/O PAIN. CLEANED OF INCONT STOOL. EXCORIATED PERIANAL AND UPPER THIGHS. ATTACHED TO MONITORS.
[2020-03-30 13:30] VITALS: BP 104/34
--- NOTE | 2020-03-30 13:30 | NUR ---
ASSESSMENT PT AWAKE AND A/O X4. LIMITED MOVEMENT IN BED, WEAK LOWER EXTREMITIES. LUNGS CLEAR AND LIGHTLY DIMINISHED THROUGHOUT. O2 AT 4 L/M VIA OXYMIZER WITH AN O2 SAT OF 97%. TELE SR 80'S. PALPABLE PULSES TO ALL EXTREMITIES. ABD SOFT WITH + BOWEL SOUNDS. MON CATHETER DRAINING CLEAR YELLOW URINE. INCONTINENT OF BM UPON ARRIVAL TO THE ICU, BUT NONE CURRENTLY. SKIN EXCORIATED TO SHERIN ANAL AREA AND INNER THIGHS. AND Z GUARD CREAM APPLIED. REPOSITIONED FOR COMFORT , RAILS UP AND BED IN LOW POSITION FOR PT SAFETY . CONTINUE TO MONITOR.
--- NOTE | 2020-03-30 14:30 | NUR ---
PT COMPLAINS OF PAIN TO IV SITE ON LFA, AND ARM IS SWOLLEN AND FIRM ON INNER AC. REMOVED IV AND ATTEMPTED TO FLUSH HER OTHER IV TO THE RIGHT, BUT PT ALSO CRIES OUT WHEN I ATTEMPTED TO FLUSH IT. ATTEMPTED TO PLACE ANOTHER IV WITHOUT SUCCESS. CALLED MESH MAN, TYESHA, AND SHE WILL TRY TO PLACE AN IV WHEN SHE CAN.
[2020-03-30] MEDS: methylPREDNISolone SOD SUCC 40 MG/ML VL IV SCH ×2 (14:57→21:18)
[2020-03-30 15:40] VITALS: BP 95/35
--- NOTE | 2020-03-30 17:00 | NUR ---
TYESHA, DIVISION LEADER, HERE AND PLACED AN IV SALINE LOCK, #20, TO THE PT'S LEFT CHEST. FLUSHES WELL.
--- NOTE | 2020-03-30 17:30 | NUR ---
PT DOZING OFF AND ON. VSS.
--- NOTE | 2020-03-30 17:30 | NUR ---
NEW IV NEW IV #20, PLACED BY WEBSITE PROGRAMMER, TYESHA, TO THE PT'S RIGHT UPPER CHEST. TOLERATED WELL BY THE PT.
--- NOTE | 2020-03-30 18:30 | NUR ---
PT AWAKE AND EATING HER DINNER. CONTINUE TO MONITOR.
--- NOTE | 2020-03-30 18:45 | NUR ---
MD VISIT PT SEEN AND EXAMINED BY DR SHORE.
--- NOTE | 2020-03-30 19:30 | NUR ---
REPORT REPORT GIVEN TO CARL HUDSON RN.
--- NOTE | 2020-03-30 19:31 | NUR ---
Opening Shift Note Assumed care of patient, awake and alert x 4 but anxious. Patient reports being uncomfortable. Repositioned patient for comfort. Patient reports no pain but does report some mild dizziness. Patient receiving supplemental oxygen through Oxymizer at 5 l/min. Patient on continuous bedside flatlock sewing machine operator and pulse oximeter. Bed is in lowest position and locked. Call light within reach. Board updated. Instructed on POC and to call for assist PRN, will continue to monitor for changes Q1hr and PRN.
[2020-03-30 20:00] VITALS: BP 114/49
[2020-03-30] MEDS: PROMETHAZINE HCL 25 MG/ML 1ML IV PRN (21:19)
--- NOTE | 2020-03-30 21:52 | NUR ---
Patient reporting increased nausea and dizziness. Patient did not vomit but did not want to be moved or repositiononed as it made vertigo worse. Promethazine 12.5 mg IV PRN given. Patient reports nausea and dizziness have decreased.
--- NOTE | 2020-03-30 23:00 | NUR ---
Respiratory note: PT SEEN AND ASSESSED FOR PRN MED NEB TREATMENT AT 2300. TREATMENT IS NOT INDICATED AT THIS TIME. PT DISPLAYING NO SIGNS OF RESPIRATORY DISTRESS, SHE IS CURRENTLY SLEEPING. HR 84 RR 16 SP02 96% ON A 5L OXYMIZER.
[2020-03-31] VITALS: BP 113/45
--- NOTE | 2020-03-31 00:03 | NUR ---
Patient turned and repositioned for comfort. No signs of distress or SOB at this time. Will continue to assess.
[2020-03-31 01:30] LABS: Urine Bacteria FEW /hpf (None Seen); Urine Blood Negative /uL (Negative); Urine Budding Yeast MANY /hpf (None Seen); Urine Mucus FEW (None Seen); Urine Specific Gravity 1.012 (1.001-1.035); Urine WBC 4 /hpf (0 - 5)
--- NOTE | 2020-03-31 02:02 | NUR ---
Tele-psych report received from [employer] request. Report placed in chart for physician review.
[2020-03-31] MEDS ORDERED: POTASSIUM EFFERVESENT TAB 25 MEQ PO ONE (02:15)
[2020-03-31 04:00] VITALS: BP 111/42
[2020-03-31] MEDS: methylPREDNISolone SOD SUCC 40 MG/ML VL IV SCH ×3 (05:12→21:30)
--- NOTE | 2020-03-31 05:48 | NUR ---
Partial linen change performed. Patient tolerated well.
--- NOTE | 2020-03-31 07:27 | NUR ---
REPORT RECEIVED FROM COLLECTION MANAGER RN
--- NOTE | 2020-03-31 07:28 | NUR ---
Report given to YAKELIN Nguyen. Patient resting comfortably in bed at this time exhibiting no signs of distress, SOB, or pain.
--- NOTE | 2020-03-31 07:49 | NUR ---
SKIN INTEGRITY MULTIPLE RED EASLEY AND REDNESS NOTED TO PATIENTS SHERIN AREA, SACRUM, AND BUTTOCKS. OPTIFOAM IN PLACE WITH BARRIER CREAM APPLIED
[2020-03-31 08:00] VITALS: BP 128/47
[2020-03-31] MEDS: DOXYCYCLINE 100MG/250ML 250 ML IV SCH ×2 (09:28→21:30)
[2020-03-31] MEDS: ENOXAPARIN SOD 40 MG/0.4 ML SYRINGE SC SCH (09:28)
[2020-03-31] MEDS: PANTOPRAZOLE 40 MG TAB PO SCH (09:29)
[2020-03-31] MEDS: POTASSIUM CHL 20 Meq TABLET PO SCH (09:29)
[2020-03-31] MEDS: ASPirin 81 mg TAB PO SCH (09:29)
[2020-03-31] MEDS: FUROSEMIDE 40 MG TAB PO SCH (09:30)
[2020-03-31] MEDS: ALPRAZolam 0.5 MG TAB PO SCH ×2 (09:30→21:31)
--- NOTE | 2020-03-31 09:41 | NUR ---
FAMILY DAUGHTER UPDATED ON PATIENT STATUS. ALL QUESTIONS AND CONCERNS ADDRESSED AT THIS TIME
--- NOTE | 2020-03-31 10:44 | NUR ---
DIETARY AT BEDSIDE
--- NOTE | 2020-03-31 10:45 | NUR ---
WOUND CARE NOTE: IN TO SEE PATIENT FOR SKIN INTEGRITY. PATIENT WAS ADMITTED TO [facility] WITH DIAGNOSIS OF ACUTE RESPIRATORY FAILURE. SHE WAS NOTED TO HAVE A REDDENED AREA TO THE LEFT SACRUM/BUTTOCK. WOUND PHOTO TAKEN FOR REFERENCE. WOUND CONSULT ORDERED. PATIENT HAS A VALENCIA SCORE OF 16. SHE IS NOTED TO HAVE A 0.4 X 3.2 CM INTACT NON BLANCHABLE RED AREA TO THE LEFT BUTTOCK. PATIENT MAY HAVE BEEN LAYING ON BEDDING WRINKLE. SKIN IS INTACT, RED, NON BLANCHING. SHE HAS MASD/INTERTRIGO TO PERINEUM. RECOMMEND: FREQUENT TURN SCHEDULE Q 2 HOURS, PRN CONDITION PERMITS, WITH PRESSURE REDISTRIBUTION USING PILLOWS/WEDGES, BID/PRN APPLICATION WITH MOISTURE BARRIER CREAM, OPTIFOAM GENTLE SACRAL DRESSING, SPECIALTY AIR MATTRESS, SKIN/WOUND CARE PLAN, DIETARY CONSULT, CONTINUED MONITORING BY WOUND CARE TEAM. Addendum: 03/31/20 at 1925 by Mary Parry RN Amended: Links added.
[2020-03-31 12:00] VITALS: BP 113/47
--- NOTE | 2020-03-31 12:06 | NUR ---
PATIENT PROVIDED WITH LUNCH TRAY
--- NOTE | 2020-03-31 12:49 | NUR ---
LARGE BOWEL MOVEMENT PATIENT CLEANSED, NEW DRESSINGS TO SACRUM AND BUTTOCKS, AND COMPLETE LINEN CHANGE PERFORMED AT THIS TIME
--- NOTE | 2020-03-31 13:33 | NUR ---
Respiratory note: FLOW DECREASED ON OXYMIZER FROM 8LPM DOWN TO 3LPM. PATIENT TOLERATING WELL, AND SPO2 MAINTAINS AT 96%. RN MARTHA MADE AWARE OF CHANGE.
--- NOTE | 2020-03-31 15:06 | NUR ---
Nutrition Assessment Notes Please refer to link for full assessment notes. Est Energy needs: [id number] kcals (25-30 kcal/kgBW) Est Protein needs: 89-119 gms/day (1.2-1.6 gm/kgBW) d/t pt respiratory distress Will continue to monitor and reassess prn. Addendum: 03/31/20 at [address] Amended: Links added.
[2020-03-31 16:00] VITALS: BP 136/37
--- NOTE | 2020-03-31 16:07 | NUR ---
FAMILY CONTACT DR. FLETCHER SPOKE WITH DAUGHTER DAVID WITH THIS NURSE ON [address] CALL. MD SPOKE IN GREAT DETAIL IN REGARDS TO PATIENT STATUS AND PLAN OF CARE ONCE PATIENT IS DISCHARGED. PATIENT CURRENTLY PENDING PHYSICAL THERAPY CONSULT. DAUGHTER REPORTING SHE IS NOT ABLE TO HEAR PHYSICIAN BUT DAUGHTER IS ABLE TO REPEAT EVERYTHING MD HAS SAID TO HER. MD OFFERED TO MEET FACE TO FACE WITH DAUGHTER SO THERE IS NO BARRIER TO COMMUNICATION WITH DAUGHTER BECOMING AGITATED AND HUNG UP THE PHONE.
--- NOTE | 2020-03-31 16:21 | NUR ---
PATIENT HAD BOWEL MOVEMENT PATIENT CLEANSED WITH PARTIAL LINEN AND GOWN CHANGED AT THIS TIME
--- NOTE | 2020-03-31 17:09 | NUR ---
PATIENT PLACED ON SPECIALTY AIRMATRESS AT THIS TIME
[2020-03-31 18:04] LABS: Basophils # (auto) 0 10 ^3/uL (0-0.2); Eosinophils # (auto) 0 10 ^3/uL (0-0.8); Hemoglobin 9.1 g/dL (12.2-16.2); Monocytes # (auto) 0.4 10 ^3/uL (0-1.3)
[2020-03-31 18:07] LABS: Basophils % (auto) 0.1 % (0.0-2.0); Hematocrit 32.8 % (36.0-46.0); Lymphocytes % (auto) 8.1 % (10.0-50.0); Mean Corpuscular Hemoglobin 20.7 pg (28.0-32.0); Mean Corpuscular Hgb Conc. 27.9 g/dL (32.0-36.0); Mean Corpuscular Volume 74.2 fL (80.0-100.0); Neutrophils # (auto) 10.8 10 ^3/uL (1.6-8.6); Neutrophils % (auto) 88.8 % (37.0-80.0); Nucleated Red Blood Cells % 0.1 %; Platelet Count (auto) 188 10^3/uL (140-450); Red Blood Cells 4.43 10^6/uL (4.0-5.20); White Blood Cell 12.2 10^3/uL (4.4-10.8)
[2020-03-31 18:25] LABS: Red Cell Distribution Width 22.3 % (11.8-14.3)
[2020-03-31 18:30] LABS: BUN/Creatinine Ratio 33.8; Calcium 9.4 mg/dL (8.5-10.1); Potassium 4.2 mmol/L (3.5-5.1)
--- NOTE | 2020-03-31 18:40 | NUR ---
Respiratory note: PT ASSESSED FOR PRN MED NEB TX. HR 86, RR 24, SPO2 97% ON 3L OXYMIZER. NO S/S OF ANY DISTRESS NOTED. PT STATED SHE FELT OKAY WITHOUT IT. ADVISED PT TO CALL IF TX IS NEEDED.
[2020-03-31] MEDS: PROMETHAZINE HCL 25 MG/ML 1ML IV PRN (18:45)
[2020-03-31 20:00] VITALS: BP 120/42
--- NOTE | 2020-03-31 20:00 | NUR ---
SHIFT OPENING NOTE RECEIVED PATIENT AWAKE, ALERT AND ORIENTED X4. NO SOB, DISTRESS OR PAIN NOTED. ON 3 L OXYMIZER POX 98%. MON CATH DRAINING YELLOW URINE TO GRAVITY. ON SPECIALTY MATTRESS. PHYSICAL ASSESSMENT COMPLETED. SEE INTERVENTIONS. INSTRUCTED ON POC AND TO CALL FOR ASSIST NEEDED. BED IS IN THE LOWEST POSITION WITH SIDE RAILS UP X2, CALL LIGHT IS WITHIN REACH.
--- NOTE | 2020-03-31 20:30 | NUR ---
HYGIENE CARE PATIENT HAD A BM ON BEDPAN. SHERIN CARE DONE WITH SOAP AND WATER. NEW PAD CHANGED UNDER PATIENT. NEW GOWN APPLIED. TOLERATED IT WELL.
[2020-04-01] VITALS: BP 135/54
[2020-04-01 04:00] VITALS: BP 110/96
[2020-04-01 04:08] LABS: Basophils # (auto) 0.1 10 ^3/uL (0-0.2); Basophils % (auto) 0.5 % (0.0-2.0); Eosinophils # (auto) 0 10 ^3/uL (0-0.8); Hematocrit 29.1 % (36.0-46.0); Lymphocytes # (auto) 1.1 10 ^3/uL (0.4-5.4); Lymphocytes % (auto) 9.2 % (10.0-50.0); Mean Corpuscular Hemoglobin 20.3 pg (28.0-32.0); Mean Corpuscular Hgb Conc. 27.4 g/dL (32.0-36.0); Monocytes # (auto) 0.4 10 ^3/uL (0-1.3); Monocytes % (auto) 3.9 % (0.0-12.0); Neutrophils % (auto) 86.4 % (37.0-80.0); Nucleated Red Blood Cells % 0.1 %; Platelet Count (auto) 160 10^3/uL (140-450); Red Blood Cells 3.93 10^6/uL (4.0-5.20); White Blood Cell 11.6 10^3/uL (4.4-10.8)
[2020-04-01 04:24] LABS: Potassium 4.3 mmol/L (3.5-5.1)
[2020-04-01 04:28] LABS: BUN/Creatinine Ratio 43.8; Calcium 9.3 mg/dL (8.5-10.1)
--- NOTE | 2020-04-01 04:30 | NUR ---
MORNING HYGIENE CARE PARTIAL BED BATH PERFORMED. SHERIN CARE DONE FOR BM INCONTINENCE EPISODE. PARTIAL LINEN CHANGED. PATIENT REPOSITIONED FOR COMFORT. TOLERATED IT WELL.
--- NOTE | 2020-04-01 06:26 | NUR ---
PT RESTING COMFORTABLY. NO RESPIRATORY DISTRESS NOTED. SPO2 98% ON 2L OXYMIZER, HR 76, RR 17, BS CLEAR/DIMINISHED BILATERALLY. PRN MEDNEB TX NOT INDICATED AT THIS TIME. PT INFORMED TO PUSH CALL BUTTON IF INCREASED WOB, SOB, OR WHEEZING OCCURS. WILL CONTINUE TO MONITOR PT. CHARTING COMPLETE FROM OUTSIDE OF PT ROOM.
--- NOTE | 2020-04-01 07:25 | NUR ---
END OF SHIFT REPORT GIVEN AND CARE ENDORSED TO CLINTON HAMLIN.
[2020-04-01 08:00] VITALS: BP 129/49
[2020-04-01] MEDS: ASPirin 81 mg TAB PO SCH (10:37)
[2020-04-01] MEDS: PANTOPRAZOLE 40 MG TAB PO SCH (10:37)
[2020-04-01] MEDS: ENOXAPARIN SOD 40 MG/0.4 ML SYRINGE SC SCH (10:37)
[2020-04-01] MEDS: methylPREDNISolone SOD SUCC 40 MG/ML VL IV SCH (10:37)
[2020-04-01] MEDS: POTASSIUM CHL 20 Meq TABLET PO SCH (10:38)
[2020-04-01] MEDS: DOXYCYCLINE 100MG/250ML 250 ML IV SCH ×2 (10:38→21:44)
[2020-04-01] MEDS: FUROSEMIDE 40 MG TAB PO SCH (10:38)
[2020-04-01] MEDS: ALPRAZolam 0.5 MG TAB PO SCH (10:49)
--- NOTE | 2020-04-01 11:38 | NUR ---
Midline Placement: Patient educated on need for midline placement. All risks and benefits explained and all questions and concerns addresses prior to procedure. 18g/10cm midline inserted via left cephalic vein using Ultrasound. Sterile technique utilized. Blood return obtained from lumen and flushed easily with NS using proper technique. Midline secured with saline lock; biodisc and occlusive dressing applied. Ryann HAMLIN notified. Midline lot #[id number]
--- NOTE | 2020-04-01 15:30 | NUR ---
PATIENT'S BROTHER AND SISTER IN LAW PHONES - UPDATED ON PATIENT CONDITION - VERBALIZES UNDERSTANDING.
[2020-04-01 16:00] VITALS: BP 110/96
--- NOTE | 2020-04-01 16:00 | NUR ---
PATIENT ASSISTED UP TO CHAIR WITH P.T. - REQUESTS TO STAY IN CHAIR ONLY 15 MINUTES. ICT QUALITY ASSURANCE ENGINEER STRONGLY ENCOURAGED PATIENT TO STAY UP IN CHAIR X 3O MIN - PATIENT COMPLIANT. PATIENT C/O LIGHTHEADEDNESS WHILE UP TO CHAIR X 10 MIN AND THEN STATES DISSIPATED.
--- NOTE | 2020-04-01 16:15 | NUR ---
PATIENT ASSISTED UP TO CHAIR WITH P.T. X 30 MIN AND REQUESTED TO RETURN TO BED.
--- NOTE | 2020-04-01 17:00 | NUR ---
DR GAY VISITS - STATES PATIENT CAN GO TO TELE BED
--- NOTE | 2020-04-01 17:30 | NUR ---
DR Demar GARCIA VISITS AND EXAMIES PATIENT - DISCUSSES POC AND DC PLANS -PATIENT ANXIOUS AND C/O ABD PAIN. STATES IS ANXIOUS - ORDERS RECEIVED PER MD FOR C/O. PATIENT ALERT AND ORIENTED X 4 - ABLE TO COMPREHEND DISCUSSION WITH MD AND MAKE DECISIONS RE: HER CARE.
[2020-04-01] MEDS ORDERED: ALPRAZolam 0.5 MG TAB PO PRN ×2 (18:30→19:15)
[2020-04-01] MEDS ORDERED: CALCIUM CARB 500 MG CHEW TAB PO ONE (18:30)
--- NOTE | 2020-04-01 18:50 | NUR ---
Respiratory note: PT ASSESSED FOR PRN TX. HR 81, RR 24, POX 96% ON 3L OXYMIZER, BS ARE CLEAR. NO SOB OR DISTRESS NOTED. PT WAS NOTIFY TO HAVE RT PAGED.
[2020-04-01 20:00] VITALS: BP 115/40
--- NOTE | 2020-04-01 20:00 | NUR ---
SHIFT OPENING NOTE RECEIVED PATIENT AWAKE, ALERT AND ORIENTED X4. NO SOB, DISTRESS OR PAIN NOTED. ON 3 L OXYMIZER POX 92%. MON CATH DRAINING YELLOW URINE TO GRAVITY. LEFT UPPER ARM MIDLINE KVO. ON SPECIALTY MATTRESS. PHYSICAL ASSESSMENT COMPLETED. SEE INTERVENTIONS. INSTRUCTED ON POC AND TO CALL FOR ASSIST NEEDED. BED IS IN THE LOWEST POSITION WITH SIDE RAILS UP X2, CALL LIGHT IS WITHIN REACH.
[2020-04-01] MEDS: predniSONE 20 MG TAB PO SCH (21:45)
[2020-04-02] VITALS: BP 117/44
[2020-04-02 03:46] LABS: Basophils # (auto) 0 10 ^3/uL (0-0.2); Basophils % (auto) 0.2 % (0.0-2.0); Eosinophils # (auto) 0 10 ^3/uL (0-0.8); Hematocrit 28.8 % (36.0-46.0); Lymphocytes # (auto) 1.3 10 ^3/uL (0.4-5.4); Lymphocytes % (auto) 10.7 % (10.0-50.0); Mean Corpuscular Hemoglobin 20.7 pg (28.0-32.0); Mean Corpuscular Hgb Conc. 27.9 g/dL (32.0-36.0); Mean Corpuscular Volume 74.3 fL (80.0-100.0); Monocytes # (auto) 0.5 10 ^3/uL (0-1.3); Monocytes % (auto) 4.5 % (0.0-12.0); Neutrophils % (auto) 84.6 % (37.0-80.0); Platelet Count (auto) 167 10^3/uL (140-450); Red Blood Cells 3.88 10^6/uL (4.0-5.20); White Blood Cell 11.9 10^3/uL (4.4-10.8)
[2020-04-02 03:47] LABS: Red Cell Distribution Width 22.6 % (11.8-14.3)
[2020-04-02 04:00] VITALS: BP 119/40
[2020-04-02 04:02] LABS: BUN/Creatinine Ratio 44.3; Calcium 9.3 mg/dL (8.5-10.1); Potassium 4.4 mmol/L (3.5-5.1)
--- NOTE | 2020-04-02 04:33 | NUR ---
REPORT GIVEN TO KAIDEN HAMLIN IN TELE ALL QUESTIONS ANSWERED
--- NOTE | 2020-04-02 04:50 | NUR ---
BM CLEANSED WITH SOAP AND WATER. PERICARE PERFORMED. Z GUARD APPLIED TO BUTTOCK AREA. PARTIAL BED BATH DONE WITH CHG WIPES. FULL LINEN CHANGE. PATIENT REPOSITIONED FOR COMFORT. TOLERATED IT WELL.
--- NOTE | 2020-04-02 05:00 | NUR ---
PATIENT TRANSFERRED TO ROOM 220A VIA BED TELE BOX AND PORTABLE 02. ALL BELONGINGS TAKEN WITH PATIENT. TOLERATED IT WELL.
--- NOTE | 2020-04-02 05:25 | NUR ---
Transferred to floor from [facility] CHANDRA IRVIN transferred from [facility] to room 219 B via [facility] on med asst and portable 02 at 0500. Patient oriented to unit and room. Vital are taken BP 126/52 mmHg, HR 80, RR 18 bpm regular and non-labored. Patient is on 3 lpm O2 via Ox[employer]izer. No s/s of respiratory distress and pain reported or noted. Bed in lowest position, brakes locked, side rails up X 2, call light within reach. Will continue to monitor Q1H or PRN.
[2020-04-02 06:00] VITALS: BP 126/52
--- NOTE | 2020-04-02 06:22 | NUR ---
Respiratory note: ASSESSED PT FOR PRN MED NEB AT THIS TIME, PT DENIES SOB AT THIS TIME, NO RESP DISTRESS NOTED, NO TX INDICATED, PULSE OX 95% ON 3L OXYMIZER, HR 74, RR 18, BILATERAL BS CLEAR.
[2020-04-02 09:00] VITALS: BP 127/48
[2020-04-02] MEDS: DOXYCYCLINE 100MG/250ML 250 ML IV SCH (10:03)
[2020-04-02] MEDS: ENOXAPARIN SOD 40 MG/0.4 ML SYRINGE SC SCH (10:03)
[2020-04-02] MEDS: FUROSEMIDE 40 MG TAB PO SCH (10:03)
[2020-04-02] MEDS: predniSONE 20 MG TAB PO SCH (10:04)
[2020-04-02] MEDS: ASPirin 81 mg TAB PO SCH (10:04)
[2020-04-02] MEDS: PANTOPRAZOLE 40 MG TAB PO SCH (10:04)
[2020-04-02] MEDS: POTASSIUM CHL 20 Meq TABLET PO SCH (10:04)
[2020-04-02] MEDS ORDERED: DOX100T PO (12:23)
[2020-04-02] MEDS ORDERED: FURO40TA4 PO (12:23)
[2020-04-02] MEDS ORDERED: PRED20TA2 PO (12:23)
[2020-04-02] MEDS ORDERED: POTA-220 PO (12:23)
[2020-04-02 13:00] VITALS: BP 112/49
--- NOTE | 2020-04-02 17:29 | NUR ---
PATIENT PICK TIME IS 2044 [facility] [id number]
--- NOTE | 2020-04-02 17:29 | NUR ---
[facility] SENT OUT PER PROTOCOL
[2020-04-02 18:41] VITALS: BP 108/50
--- NOTE | 2020-04-02 18:47 | NUR ---
DISCHARGE WOUND PHOTOS TAKEN PER PROTOCOL.
--- NOTE | 2020-04-02 18:54 | NUR ---
MON CATHETER REMOVED PER PATIENT REQUEST. PATIENT TOLERATED WELL.
--- NOTE | 2020-04-02 21:10 | NUR ---
PATIENT D/C PATIENT WAS PICKED UP BY [employer] AND LEFT THE UNIT AT 2100. NO S/S OF RESPIRATORY DISTRESS. RESPIRATIONS ARE REGULAR AND NON-LABORED ON 3 LPM O2. BP 126/52 MMHG HR 80 BPM. ALL IV REMOVED, MONITOR SENT TO ICU.
[2020-04-02] MEDS ORDERED: DOXYCYCLINE 100 MG TAB/CAP PO SCH (22:00)
--- NOTE | 2020-04-03 08:24 | NUR ---
Assessment Patient is a 79 year old female who is alert and oriented. Prior to admission patient lived home with her daughter and family and functioned with assistance. Per patient she has a BIPAP and walker for home use. Advised patient there is a social service consult for hospice evaluation. Information and choice letter was given to patient. Patient did not have a hospice preference. Informed patient clinical information will be faxed to [facility]. Informed patient Rita with [facility] will come to bedside and speak to her in regards of hospice. Informed patient she has a right to speak to a perinatal social worker regarding all care. Informed patient she has a right to participate in any and all discharge planning. Patient does not have a POA and advanced directive. Patient verbalize understanding discharge plan. Faxed clinical information to [facility]. Per Rita with [facility] patient has agreed to be on their service and they will see patient upon d/c day. [facility] via [employer] with home oxygen with a 20:00 pharmacy picking technician time. bedside nurse was informed. Addendum: 04/03/20 at 0830 by DALTON DUONG Amended: Links added.
== END 2020-04-02 21:00 | disposition hospice, home (50) | DRG 189 ==
LOC: EDBD 08:25 → ER 08:25 → OVERFLOW 08:26 → DOU IN ICU 03-30 12:32 → TELE-CENTR 04-02 04:59
PROVIDERS: ADMIT Internal Medicine; ATTEND Internal Medicine
DX: J96.21 Acute and chronic respiratory failure with hypoxia (principal); J44.1 Chronic obstructive pulmonary disease with (acute) exacerbation; J90 Pleural effusion, not elsewhere classified; I50.32 Chronic diastolic (congestive) heart failure; J96.22 Acute and chronic respiratory failure with hypercapnia; E66.01 Morbid (severe) obesity due to excess calories; F41.9 Anxiety disorder, unspecified; Z68.30 Body mass index [BMI] 30.0-30.9, adult; Z91.19 Patient's noncompliance with other medical treatment and regimen; Z79.899 Other long term (current) drug therapy; Z80.3 Family history of malignant neoplasm of breast; Z90.710 Acquired absence of both cervix and uterus; Z20.828 Contact with and (suspected) exposure to other viral communicable diseases; Z72.0 Tobacco use
CPT/HCPCS: 36415; 36600; 71045; 80048; 80053; 81001; 82728; 82805; 83605; 83615; 83880; 84484; 85025; 85379; 85610; 85730; 86141; 87040; 87081; 87086; 87088; 93005; 93970; 94640; 94760; 94762; 96374; 99291; G0378; J3480; J3490